=== PATIENT | male | born 1955 | race Caucasian/White ===

== ENCOUNTER 2020-04-06 01:44 | Outpatient (CLI) | payer MEDICARE, SELFPAY ==
[2020-04-06 20:40] LABS: SARS-CoV-2 RNA PCR Negative
== END 2020-04-06 01:45 | disposition home or self-care (01) ==
LOC: ANHCOVIDDT 01:45
PROVIDERS: PCP Internal Medicine; Visit Provider Orthopaedic Surgery
DX: Z01.812 Encounter for preprocedural laboratory examination (principal); Z20.828 Contact with and (suspected) exposure to other viral communicable diseases
CPT/HCPCS: 87635; C9803; U0003

== ENCOUNTER 2020-04-09 00:31 | Day surgery (SDC) | payer MEDICARE, SELFPAY ==
[2020-04-02 15:20] VITALS: BMI 36.3
--- NOTE | 2020-04-08 10:13 | WPDANESEPPF ---
Anes - Initial Pre Proc Eval Procedure: Operation Date: 04/09/20 08:30 Proposed Procedures p Right Foot Triple Arthrodesis, Achilles Lengthening, - Harley Baldwin MD s Iliac Crest Aspiration - Harley Baldwin MD Date/Time: 04/08/20 10:13 Surgeon: Harley Baldwin MD Pre Op Diagnosis: right foot arthritis, right foot deformity Patient Data Age: 64 Gender: M Height: 1.91 m Weight: 131.8 kg Allergies Allergy/AdvReac Type Severity Reaction Status Date / Time benzoin Allergy Unknown blisters Verified 04/02/20 15:12 gum mastic Allergy Unknown blisters Verified 04/02/20 15:12 adhesive tape AdvReac Unknown blisters Verified 04/02/20 15:12 Home Medications Medication Instructions Recorded Confirmed Type amlodipine 10 mg tablet 10 mg PO DAILY 02/26/20 04/02/20 History apixaban 5 mg tablet 5 mg PO BID 02/26/20 04/02/20 History gabapentin 300 mg capsule 300 mg PO BID 02/26/20 04/02/20 History lisinopril 40 mg tablet 40 mg PO DAILY 02/26/20 04/02/20 History primidone 50 mg tablet 125 mg PO BID 02/26/20 04/02/20 History Patient hx anesthesia problems: none Family hx anesthesia problems: none PMFSH Past Medical History Medical History (Updated 04/09/20 @ 07:37 by Jose Daniel Saleh MD) Abnormality of heart beat Achilles tendon contracture, right Afib Arthritis Arthritis of foot, degenerative CHF (congestive heart failure) diastolic Chronic narcotic use Constipation Dizziness History of pulmonary embolism Hypertension Idiopathic neuropathy Obesity Pes planovalgus Sleep apnea Sleep disorder Vision changes Weight gain Surgical History Surgical History History of foot surgery bilateral heal spur removal Social History Social History Smoking status: Former smoker Tobacco type: cigarettes Smoking end date: 05/29/84 Additional smoking assessment comments: STATES 1-2PK/DAY/10YRS - QUIT AGE 26? Alcohol intake: former Substance use: never Living arrangements: with family Spiritual care concerns: No Anes - Eval Final PreProcedure Day of Procedure 11/11/20 10:13 Patient weight: obese Heart: regular rate and rhythm Lungs: clear to auscultation and normal air movement Airway: Mallampati scale class II Neurological: alert and oriented Last oral intake: >/= 8 hours ASA classification: IV Emergent: no Anesthetic plan: proceed Anesthesia type and monitoring: general LMA and ETT Informed Consent: The patient's anesthetic plan and its attendant risks and benefits were discussed with the patient/family/POA. Questions were solicited and answers provided to the satisfaction of the patient/family/POA.
--- NOTE | 2020-04-08 15:37 | PM.IMHP ---
H&P: HPI History of Present Illness Date/Time: 04/08/20 15:37 Chief complaint: right foot arthritis, right foot deformity Narrative: Rishi Jordan is a 64 year old male With idiopathic peripheral neuropathy and severe right flatfoot deformity with arthritis. Problems with weight-bearing and daily activity. He has failed treatment with custom bracing, physical therapy, medication and activity modifications. Presents now for operative treatment. Review of Systems Constitutional: Constitutional: Denies fever(s) Eyes: Eyes: Denies blurry vision ENT: Reports Normal hearing present Cardiovascular: Cardiovascular: Denies chest pain and Denies dyspnea Respiratory: Respiratory: Denies dyspnea and Denies wheezing Gastrointestinal: Gastrointestinal: Denies abdominal pain Genitourinary: Genitourinary: Denies urinary urgency Musculoskeletal: Musculoskeletal: Reports as per HPI and Reports numbness ( Bilateral feet) Integumentary/Breasts: Skin/Breast: Denies changing lesions and Denies sores Neurologic: Reports Normal hearing present, Denies behavioral changes, Denies confusion, Reports numbness ( peripheral neuropathy) and Denies convulsions Psychiatric: Psychiatric: Denies behavioral changes, Denies confusion and Denies hallucinations Endocrine: Endocrine: Denies heat intolerance Hematologic/Lymphatic: Hematologic/Lymphatic: Denies easy bleeding Allergic/Immunologic: Allergic/Immunologic: Denies wheezing PMFSH Past Medical History Medical History Abnormality of heart beat Afib Arthritis Arthritis of foot, degenerative Constipation Dizziness History of pulmonary embolism Hypertension Idiopathic neuropathy Pes planovalgus Sleep apnea Sleep disorder Vision changes Weight gain Surgical History Surgical History History of foot surgery bilateral heal spur removal Social History Social History Smoking status: Former smoker Tobacco type: cigarettes Smoking end date: 05/29/84 Additional smoking assessment comments: STATES 1-2PK/DAY/10YRS - QUIT AGE 26? Alcohol intake: former Substance use: never Spiritual care concerns: No Meds Home Medications and Allergies Home Medications Medication Instructions Recorded Confirmed Type amlodipine 10 mg tablet 10 mg PO DAILY 02/26/20 04/02/20 History apixaban 5 mg tablet 5 mg PO BID 09/30/20 11/05/20 History gabapentin 300 mg capsule 300 mg PO BID 02/26/20 04/02/20 History lisinopril 40 mg tablet 40 mg PO DAILY 02/26/20 04/02/20 History primidone 50 mg tablet 125 mg PO BID 02/26/20 04/02/20 History Allergies Allergy/AdvReac Type Severity Reaction Status Date / Time benzoin Allergy Unknown blisters Verified 04/02/20 15:12 gum mastic Allergy Unknown blisters Verified 04/02/20 15:12 adhesive tape AdvReac Unknown blisters Verified 04/02/20 15:12 Exam Const: General: healthy appearing; No in distress or confusion Orientation/consciousness: oriented to person, oriented to place, oriented to time and No confusion HENMT: Head: normal to inspection, normocephalic and atraumatic Eyes: Conjunctivae: conjunctivae normal Sclera: sclerae normal Neck: Neck: supple and nontender Resp: Effort & Inspection: normal respiratory effort and no audible wheezes Cardio: Rate: regular rate Rhythm: regular rhythm Skin: General skin exam: no rashes or lesions noted Neuro: General: oriented to person, oriented to place, oriented to time and No confusion Extrem: Right upper extremity: normal to inspection Left upper extremity: normal to inspection Right lower extremity: normal capillary refill, ankle Details: tenderness Location: of the medial malleolus, swelling Details: medially and abnormal ROM Details: pain with active ROM Details: with inversion and with range as follows ( ankle dorsifle
[2020-04-09] VITALS (8 sets, daily range): BP systolic 92–159; BP diastolic 55–88; PULSE 65–77; RESP 8–20; TEMP 36.4; O2SAT 91–100
--- NOTE | ~2020-04-09 | XR_ITS ---
EXAMINATION: XR surgery orthopedic DATE: 04/09/2020 11:34 INDICATION: Right foot arthrodesis TECHNIQUE: 4 fluoroscopic images of the right foot and ankle were obtained during procedure performed by Dr. Baldwin. Radiologist was not present for the imaging or procedure. The amount of fluoroscopy time used during this procedure was 0.8 minutes. COMPARISON: None. FINDINGS: Postoperative changes of a right hindfoot arthrodesis with cannulated screws spanning the subtalar, t alonavicular and calcaneocuboid joints. Additional lateral sided staple spanning the calcaneocuboid j oint and wire plate and screws spanning the talonavicular joint. Finally there is additional cannulat ed screw extending medially across the talus from the lateral process. Bone alignment appears near-an atomic. No fractures. Expected intra-articular and soft tissue gas at the operative bed. IMPRESSION: 1. Fluoroscopy utilized for a right hindfoot arthrodesis as detailed above. See procedure note for fu rther detail. Reviewed, dictated and finalized at location A. [facility] IMPRESSION: 1. Fluoroscopy utilized for a right hindfoot arthrodesis as detailed above. See procedure note for further detail.
--- NOTE | 2020-04-09 07:21 | WPDHPUPDATE1 ---
History and Physical Update Update Date/Time: 04/09/20 07:21 History and Physical has been reviewed, including an updated exam of the patient. There are NO changes in the patient's condition. Covid test negative. Risks, benefits, and alternatives have been discussed and questions answered. Patient agrees to proceed with procedure.
[2020-04-09] MEDS: ACETAMINOPHEN 500 MG TABLET 1000 MG PO (07:35)
[2020-04-09] MEDS: LACTATED RINGERS 1,000 ML 30 ML IV CONT ×2 (07:47→12:00)
[2020-04-09] MEDS: KETOROLAC 15 MG/ML VIAL (*BKC) IV PUSH (07:48)
[2020-04-09] MEDS: ceFAZolin 3 GM/D5W 100 ML 100 ML IVPB (08:57)
[2020-04-09] MEDS: BUPIVACAINE HCL 0.5% PF 30 ML VIAL INFILTRATE (09:41)
--- NOTE | 2020-04-09 12:10 | PM.PROC ---
Procedure Note - Detailed Date of procedure: 04/09/20 Pre-op diagnosis: right foot arthritis, right foot deformity Post-op diagnosis: same Procedure performed: Right foot triple arthrodesis Description of procedure: Description of procedure: Indications: Patient is a 64-year-old man with inflammatory arthritis right foot and ankle swelling, pain and deformity with flatfoot. he has failed conservative treatment with custom bracing and inserts. He presents now for operative treatment. What was done: Patient identified in the preoperative holding. Informed consent given. Operative extremity marked. Patient received intravenous antibiotics. Patient brought to the operating room where underwent general anesthetic by anesthesia team. Positioned supine on operating room table. Time-out performed confirming the patient, site of the surgery and the plan. A bump placed under the right hip. Right lower extremity then prepped draped usual sterile surgical fashion using a ChloraPrep skin solution. Foot and ankle exsanguinated and a thigh tourniquet inflated to 250 mmHg. Oblique incision made from the tip of the fibula to the base of the 4th metatarsal with a 15 blade knife. Hemostasis controlled electrocautery. Capsulotomy was performed over the sinus tarsi and the calcaneocuboid joint with a 15 blade knife. Joints were then prepared using osteotomes, curettes and rongeur to remove the cartilage and subchondral bone surface as well as feather the arthrodesis site. The subtalar joint was then reduced and pinned and checked with image intensification. Fixation was achieved with 7.0 mm cannulated screws placed percutaneously from the heel. Good reduction and compression were noted. Platelet rich plasma which had been removed from the patient's venous blood and prepared on the back table with centrifuge was then mixed with the demineralized bone matrix and packed into the subtalar joint prior to fixation. Calcaneocuboid joint was approached in a similar fashion. The graft with demineralized bone matrix was placed into the arthrodesis site. This was reduced and provisionally pinned and checked with image intensification. Fixation achieved with a Nitinol staple and 5.0 mm cannulated lag screw. split was noted in the lateral process of the talus. This was fixed with a 5.0 mm cannulated lag screw without difficulty. Wound thoroughly irrigated antibiotic solution fascia repaired with 0 Vicryl interrupted suture. Subcutaneous tissue repaired with 2 Vicryl suture subcutaneous tissue repaired with 3 0 Monocryl interrupted suture and skin repaired with clotilde. Stab incisions closed with 3 Monocryl and clotilde. Oblique incision made from the medial malleolus to the navicular then with a 15 blade knife. Hemostasis controlled with electrocautery. Fascia incised in line with skin incision. Talonavicular joint capsule was then incised in line with skin incision and elevated dorsally and plantarward. The joint was then prepared using osteotomes, curette and rongeur. The articular surface was removed. The bone surface was feathered. The remaining demineralized bone matrix graft was then packed into the arthrodesis site. This was reduced and fixed with a 4 hole compression plate and 5.0 mm cannulated lag screw. Image intensification confirmed final alignment and placement of all the hardware. Wound was thoroughly irrigated and closed with 0 Vicryl interrupted suture for the fascia, 00 Vicryl interrupted suture for the subcutaneous tissue and 3 0 Monocryl interrupted suture for the subcutaneous subcuticular layer. [place] were used for the skin. Tourniquet was released prior to closure and any bleeding points were coagulated. Sterile dressing applied. Well-padded short-leg cast applied. The patient was then woken from anesthesia, extubated and taken to the recovery room in stable condition. All sponge, needle, instrument counts were correct at the end of the case. Implants: Ar[employer]
--- NOTE | 2020-04-09 12:13 | P.OP_ITS ---
Procedure Note - Detailed Date of procedure: 04/09/20 Pre-op diagnosis: right foot arthritis, right foot deformity Procedure performed: Description of procedure: Indications: Patient is a 64-year-old man with inflammatory arthritis right foot and ankle swelling, pain and deformity with flatfoot. he has failed conservative treatment with custom bracing and inserts. He presents now for operative treatment. What was done: Patient identified in the preoperative holding. Informed consent given. Operative extremity marked. Patient received intravenous antibiotics. Patient brought to the operating room where underwent general anesthetic by anesthesia team. Positioned supine on operating room table. Time-out performed confirming the patient, site of the surgery and the plan. A bump placed under the right hip. Right lower extremity then prepped draped usual sterile surgical fashion using a ChloraPrep skin solution. Foot and ankle exsanguinated and a thigh tourniquet inflated to 250 mmHg. Oblique incision made from the tip of the fibula to the base of the 4th metatarsal with a 15 blade knife. Hemostasis controlled electrocautery. Capsulotomy was performed over the sinus tarsi and the calcaneocuboid joint with a 15 blade knife. Joints were then prepared using osteotomes, curettes and rongeur to remove the cartilage and subchondral bone surface as well as feather the arthrodesis site. The subtalar joint was then reduced and pinned and checked with image intensification. Fixation was achieved with 7.0 mm cannulated screws placed percutaneously from the heel. Good reduction and compression were noted. Platelet rich plasma which had been removed from the patient's venous blood and prepared on the back table with centrifuge was then mixed with the demineralized bone matrix and packed into the subtalar joint prior to fixation. Calcaneocuboid joint was approached in a similar fashion. The graft with demineralized bone matrix was placed into the arthrodesis site. This was reduced and provisionally pinned and checked with image intensification. Fixation achieved with a Nitinol staple and 5.0 mm cannulated lag screw. split was noted in the lateral process of the talus. This was fixed with a 5.0 mm cannulated lag screw without difficulty. Wound thoroughly irrigated antibiotic solution fascia repaired with 0 Vicryl interrupted suture. Subcutaneous tissue repaired with 2 Vicryl suture subcutaneous tissue repaired with 3 0 Monocryl interrupted suture and skin repaired with clotilde. Stab incisions closed with 3 Monocryl and clotilde. Oblique incision made from the medial malleolus to the navicular then with a 15 blade knife. Hemostasis controlled with electrocautery. Fascia incised in line with skin incision. Talonavicular joint capsule was then incised in line with skin incision and elevated dorsally and plantarward. The joint was then prepared using os teotomes, curette and rongeur. The articular surface was removed. The bone surface was feathered. The remaining demineralized bone matrix graft was then packed into the arthrodesis site. This was reduced and fixed with a 4 hole compression plate and 5.0 mm cannulated lag screw. Image intensification confirmed final alignment and placement of all the hardware. Wound was thoroughly irrigated and closed with 0 Vicryl interrupted suture for the fascia, 00 Vicryl interrupted suture for the subcutaneous tissue and 3 0 Monocryl interrupted suture for the subcutaneous subcuticular layer. [place] were used for the skin. Tourniquet was released prior to closure and any bleeding points were coagulated. Sterile dressing applied. Well-padded short-leg cast applied. The patient was then woken from anesthesia, extubated and taken to the recovery room in stable
[2020-04-09] MEDS: fentaNYL CITRATE INJ (*CRX) 100 MCG/2 ML VIAL 25 MCG IV PUSH ×3 (12:38→12:43)
[2020-04-09] MEDS: oxyCODONE HCL (*CRX) 5 MG TAB IR PO (13:32)
== END 2020-04-09 14:20 | disposition home or self-care (01) ==
PROVIDERS: PCP Internal Medicine; Visit Provider Orthopaedic Surgery
PROC: (CPT 28715; principal; 2020-04-09 08:30)
DX: M19.071 Primary osteoarthritis, right ankle and foot (principal); M21.6X1 Other acquired deformities of right foot; I48.91 Unspecified atrial fibrillation; I11.0 Hypertensive heart disease with heart failure; I50.9 Heart failure, unspecified; G47.30 Sleep apnea, unspecified; G62.9 Polyneuropathy, unspecified; E66.9 Obesity, unspecified; Z68.36 Body mass index [BMI] 36.0-36.9, adult; Z79.01 Long term (current) use of anticoagulants; Z87.891 Personal history of nicotine dependence; Z86.711 Personal history of pulmonary embolism
CPT/HCPCS: 28715; A9270; C1713; J0690; J1100; J1885; J2250; J2405; J2704; J3010; J7120

== ENCOUNTER 2021-02-23 09:04 | Outpatient (CLI) | payer MEDICARE, SELFPAY ==
--- NOTE | ~2021-02-23 | US_ITS ---
EXAMINATION: US venous doppler [facility] DATE: 02/23/2021 10:22 INDICATION: Right lower limb swelling and skin changes. TECHNIQUE: Grayscale ultrasound images without and with compression and Doppler ultrasound images of the bilateral lower extremity veins were obtained. COMPARISON: None. FINDINGS: The visualized portions of right common femoral vein, profunda (deep) femoral vein, femoral vein, pop liteal vein, posterior tibial veins, peroneal veins, gastrocnemius vein and greater saphenous vein ou tflow are patent. Right Standing Venous Mapping: reflux seconds duration; vein size. Greater saphenous origin: 0 seconds; 7.5 mm. Greater saphenous mid thigh:------ 0 seconds; 3.6 mm. Greater saphenous below knee:--- 1.6 seconds; 2.9 mm. Lesser saphenous proximally:------ 0 seconds; 6.4 mm. Lesser saphenous distally: 0 seconds; 5.0 mm. The visualized portions of left common femoral vein, profunda femoral vein, femoral vein, popliteal v ein, posterior tibial veins, peroneal veins, gastrocnemius vein and greater saphenous vein outflow ar e patent. Left Standing Venous Mapping: reflux seconds duration; vein size. Greater saphenous origin: 0 seconds; 8.9 mm. Greater saphenous mid thigh:------ 0 seconds; 3.9 mm. Greater saphenous below knee:--- 0 seconds; 2.6 mm. Lesser saphenous proximally:------ 0 seconds; 7.6 mm. Lesser saphenous distally: 0 seconds; 5.1 mm. IMPRESSION: 1. No deep venous thrombosis in either lower limb. 2. No significant reflux in the bilateral greater and lesser saphenous veins. Reviewed, dictated and finalized at location A.
== END 2021-02-23 09:05 | disposition home or self-care (01) ==
LOC: ANHIMG 09:09
PROVIDERS: PCP Internal Medicine; Visit Provider Orthopaedic Surgery
DX: R60.0 Localized edema (principal)
CPT/HCPCS: 93970

== ENCOUNTER → 2021-03-22 03:19 | Outpatient (CLI) | payer MEDICARE, SELFPAY ==
[2021-03-22 19:59] LABS: SARS-CoV-2 RNA PCR Negative
== END ==
PROVIDERS: PCP Internal Medicine; Visit Provider Orthopaedic Surgery
DX: Z20.822 Contact with and (suspected) exposure to COVID-19 (principal)
CPT/HCPCS: C9803; U0003; U0005

== ENCOUNTER 2021-03-26 15:04 | Inpatient (IN) | payer MEDICARE, SELFPAY ==
[2021-03-22 11:47] VITALS: BMI 34.9
--- NOTE | 2021-03-23 15:54 | PM.IMHP ---
H&P: HPI History of Present Illness Date/Time: 03/23/21 15:54 Chief Complaint: Left foot pain Narrative: Chronic Lt foot pain. Pt has been having similar symptoms as his Rt foot. Pt states that the pain is located in the ankle and dorsal foot. Pt has been taking tylenol and doing RICE with minimal relief. Location: bilateral foot Duration: Right foot: 9mo PO Left foot: years Characteristics of symptom or complaint: Left foot: pain, swelling, Aggravating or associated factors: prolonged activity Relieving factors: RICE, tylenol Review of Systems Constitutional: Constitutional: Denies fever(s) Eyes: Eyes: Denies blurry vision ENT: Reports Normal hearing present Cardiovascular: Cardiovascular: Denies chest pain and Denies dyspnea Respiratory: Respiratory: Denies dyspnea and Denies wheezing Gastrointestinal: Gastrointestinal: Denies abdominal pain Genitourinary: Genitourinary: Denies urinary urgency Musculoskeletal: Musculoskeletal: Reports as per HPI and Reports numbness ( Bilateral feet) Integumentary/Breasts: Skin/Breast: Denies changing lesions and Denies sores Neurologic: Reports Normal hearing present, Denies behavioral changes, Denies confusion, Reports numbness ( peripheral neuropathy) and Denies convulsions Psychiatric: Psychiatric: Denies behavioral changes, Denies confusion and Denies hallucinations Endocrine: Endocrine: Denies heat intolerance Hematologic/Lymphatic: Hematologic/Lymphatic: Denies easy bleeding Allergic/Immunologic: Allergic/Immunologic: Denies wheezing PMFSH Past Medical History Medical History (Updated 03/23/21 @ 15:56 by Harley Baldwin MD) Abnormality of heart beat Achilles tendon contracture, left Achilles tendon contracture, right Afib Arthritis Arthritis of foot, degenerative CHF (congestive heart failure) diastolic Chronic narcotic use Constipation Degenerative arthritis of right knee Dizziness Encounter for Postoperative Care History of pulmonary embolism Hypertension Idiopathic neuropathy Obesity Pes planovalgus Sleep apnea Sleep disorder Vision changes Weight gain Surgical History Surgical History History of foot surgery bilateral heal spur removal Social History Social History Smoking packs per day: 1.5 Smoking cigarettes per day: 30.0 Years smoked: 10 Smoking pack-years: 15.00 Smoking status: Former smoker Tobacco type: cigarettes Smoking end date: 05/29/84 Additional smoking assessment comments: STATES 1-2PK/DAY/10YRS - QUIT AGE 26? Alcohol intake: former Substance use: never Spiritual care concerns: No Meds Home Medications and Allergies Home Medications Medication Instructions Recorded Confirmed Type amlodipine 10 mg tablet 10 mg PO DAILY 02/26/20 03/22/21 History apixaban 5 mg tablet 5 mg PO BID 02/26/20 03/22/21 History gabapentin 300 mg capsule 600 mg PO BID 02/26/20 03/22/21 History lisinopril 40 mg tablet 40 mg PO DAILY 02/26/20 03/22/21 History hydrocodone-acetaminophen [[place]] 1 tablet PO Q4H PRN #30 tablet 04/09/20 03/22/21 Rx ondansetron HCl [Zofran] 4 mg PO Q8H PRN #10 tablet 04/09/20 03/22/21 Rx fluocinonide 0.05 % topical cream 1 applic TOPICAL PRN PRN 10/07/20 03/22/21 History hydroxychloroquine 200 mg PO BID 03/22/21 03/22/21 History metoprolol succinate 25 mg PO QPM 03/22/21 03/22/21 History Allergies Allergy/AdvReac Type Severity Reaction Status Date / Time benzoin Allergy Unknown blisters Verified 03/22/21 10:57 gum mastic Allergy Unknown blisters Verified 03/22/21 10:57 adhesive tape AdvReac Unknown blisters Verified 03/22/21 10:57 Exam Const: General: healthy appearing; No in distress or confusion Orientation/consciousness: oriented to person, oriented to place, oriented to time and No confusion HENMT: Head: normal to inspection, normocephalic and atraumatic Eyes: Conjuncti
--- NOTE | 2021-03-24 10:56 | WPDANESEPPF ---
Anes - Initial Pre Proc Eval Procedure: Operation Date: 03/25/21 07:30 Proposed Procedures p Left Foot Triple Arthrodesis - Harley Baldwin MD s Peroneal Tendonesis Posterior Tendon Reconstruction With Tendon Transfer, Spring Ligament Transfer - Harley Baldwin MD Date/Time: 03/24/21 10:56 Surgeon: Harley Baldwin MD Pre Op Diagnosis: Lt Ft Arthritis, Flat Foot, Posterior Tibial Dysfu Patient Data Age: 65 Gender: M Height: 1.91 m Weight: 127.05 kg Allergies Allergy/AdvReac Type Severity Reaction Status Date / Time benzoin Allergy Unknown blisters Verified 03/25/21 06:43 gum mastic Allergy Unknown blisters Verified 03/25/21 06:43 adhesive tape AdvReac Unknown blisters Verified 03/25/21 06:43 Home Medications Medication Instructions Recorded Confirmed Type amlodipine 10 mg tablet 10 mg PO DAILY 02/26/20 03/25/21 History apixaban 5 mg tablet 5 mg PO BID 02/26/20 03/22/21 History gabapentin 300 mg capsule 600 mg PO BID 02/26/20 03/25/21 History lisinopril 40 mg tablet 40 mg PO DAILY 02/26/20 03/22/21 History hydrocodone-acetaminophen [[place]] 1 tablet PO Q4H PRN #30 tablet 04/09/20 03/22/21 Rx ondansetron HCl [Zofran] 4 mg PO Q8H PRN #10 tablet 04/09/20 03/22/21 Rx fluocinonide 0.05 % topical cream 1 applic TOPICAL PRN PRN 10/07/20 03/22/21 History hydroxychloroquine 200 mg PO BID 03/22/21 03/22/21 History metoprolol succinate 25 mg PO QPM 03/22/21 03/22/21 History sulfamethoxazole-trimethoprim 1 tablet PO BID 03/25/21 03/25/21 History Patient hx anesthesia problems: none Family hx anesthesia problems: none Results Review: All pre-operative results and documents have been reviewed as part of the pre-operative evaluation. [facility] Past Medical History Medical History (Updated 03/23/21 @ 15:56 by Harley Baldwin MD) Abnormality of heart beat Achilles tendon contracture, left Achilles tendon contracture, right Afib Arthritis Arthritis of foot, degenerative CHF (congestive heart failure) diastolic Chronic narcotic use Constipation Degenerative arthritis of right knee Dizziness Encounter for Postoperative Care History of pulmonary embolism Hypertension Idiopathic neuropathy Obesity Pes planovalgus Sleep apnea Sleep disorder Vision changes Weight gain Surgical History Surgical History History of foot surgery bilateral heal spur removal Social History Social History Smoking packs per day: 1.5 Smoking cigarettes per day: 30.0 Years smoked: 10 Smoking pack-years: 15.00 Smoking status: Former smoker Tobacco type: cigarettes Smoking end date: 05/29/84 Additional smoking assessment comments: STATES 1-2PK/DAY/10YRS - QUIT AGE 26? Alcohol intake: former Substance use: never Living arrangements: with family Spiritual care concerns: No Anes - Eval Final PreProcedure Day of Procedure 03/24/21 10:56 Patient weight: obese Heart: regular rate and rhythm Lungs: clear to auscultation and normal air movement Airway: Mallampati scale class II Neurological: alert and oriented Last oral intake: >/= 8 hours ASA classification: IV Emergent: no Anesthetic plan: proceed Anesthesia type and monitoring: general LMA Results Review: All pre-operative results and documents have been reviewed as part of the pre-operative evaluation. Informed Consent: The patient's anesthetic plan and its attendant risks and benefits were discussed with the patient/family/POA. Questions were solicited and answers provided to the satisfaction of the patient/family/POA.
[2021-03-25] VITALS (15 sets, daily range): BP systolic 82–130; BP diastolic 50–75; PULSE 43–94; RESP 10–18; TEMP 36.1–37.3; O2SAT 93–98; BMI 35.5
--- NOTE | 2021-03-25 06:52 | WPDHPUPDATE1 ---
History and Physical Update Update Date/Time: 03/25/21 06:52 History and Physical has been reviewed, including an updated exam of the patient. There are NO changes in the patient's condition. Risks, benefits, and alternatives have been discussed and questions answered. Patient agrees to proceed with procedure.
--- NOTE | 2021-03-25 06:56 | WPDANESPNB ---
Anes - Peripheral Nerve Block Date/Time: 03/25/21 06:56 I have discussed with the patient/family/POA the placement of a peripheral nerve block for post-operative pain management, including associated risks, benefits, complications, and side effects. Alternative methods of post-operative analgesia were detailed. Questions were solicited and answers provided to the satisfaction of the patient/family/POA. Time-Out: A pre-procedural Time-Out was completed immediately before starting the procedure and confirmed: Patient Identification, Site, Procedure, Patient Position and the Availability of Requisite Equipment. Clinical Indications: Acute post-operative pain management requested by the operative surgeon. Nerve Block Insertion Note Anes-nerve block: posterior fossa sciatic (20cc) left and adductor canal (10cc) left Patient position: supine Skin prep: chlorhexidine Needle: 22 gauge, stimulating, insulated echogenic needle. Needle length: 80 mm Technique: ultrasound (in plane) Injectate: bupivacaine 0.25% with epi 5 mcg/ml (30cc) Observations: tolerated well Complications: none Procedure start time:: 750 Procedure end time:: 755
[2021-03-25] MEDS: ACETAMINOPHEN 500 MG TABLET 1000 MG PO (07:34)
[2021-03-25] MEDS: LACTATED RINGERS 1,000 ML 30 ML IV CONT (07:35)
[2021-03-25] MEDS: KETOROLAC 15 MG/ML VIAL (*BKC) IV PUSH (07:39)
[2021-03-25] MEDS: ceFAZolin 3 GM/D5W 100 ML 100 ML IVPB (08:17)
--- NOTE | 2021-03-25 12:33 | W.PM.PROC2 ---
Procedure Note - Detailed Date of Procedure 03/25/21 Pre-op Diagnosis Lt Ft Arthritis, Flat Foot, Posterior Tibial Dysfu Post-op Diagnosis same Procedure Performed Left foot triple arthrodesis, posterior tibial tendon reconstruction, peroneal tenodesis, deltoid medial ankle ligament reconstruction. Surgeon Harley Baldwin MD Endodontic Assistant radiology assistant Anesthesia general Indications 65-year-old gentleman with severe pes planovalgus deformity left foot. Imbalance of the soft tissue control of the foot. Patient has failed bracing and conservative treatment. Presents now for operative treatment. Description of Procedure What was done: Patient identified in the preoperative holding. Informed consent given. Operative extremity marked. Patient received intravenous antibiotics. Patient brought to the operating room where underwent general anesthetic by anesthesia team. Positioned supine on operating room table. Time-out performed confirming the patient, site of the surgery and the plan. A bump placed under the left hip. Left lower extremity then prepped draped usual sterile surgical fashion using a ChloraPrep skin solution. Foot and ankle exsanguinated and a thigh tourniquet inflated to 250 mmHg. Oblique incision made from the tip of the fibula to the base of the 4th metatarsal with a 15 blade knife. Hemostasis controlled electrocautery. Capsulotomy was performed over the sinus tarsi and the calcaneocuboid joint with a 15 blade knife. Joints were then prepared using osteotomes, curettes and rongeur to remove the cartilage and subchondral bone surface as well as feather the arthrodesis site. The subtalar joint was then reduced and pinned and checked with image intensification. Fixation was achieved with 6.5 mm cannulated screws placed percutaneously from the heel. Good reduction and compression were noted. Platelet rich plasma which had been removed from the patient's venous blood and prepared on the back table with centrifuge was then mixed with the demineralized bone matrix and packed into the subtalar joint prior to fixation. Calcaneocuboid joint was approached in a similar fashion. The graft with demineralized bone matrix was placed into the arthrodesis site. This was reduced and provisionally pinned and checked with image intensification. Fixation achieved with a Nitinol staple- 18mm. Wound thoroughly irrigated with antibiotic solution. fascia repaired with 0 Vicryl interrupted suture. Subcutaneous tissue repaired with 00 Vicryl suture subcutaneous tissue repaired with 3 0 Monocryl interrupted suture and skin repaired with clotilde. Stab incisions closed with 3 0 Monocryl and clotilde. Oblique incision made from the medial malleolus to the naviculum with a 15 blade knife. Hemostasis controlled electrocautery. Fascia incised in line with skin incision. Talonavicular joint capsule was then incised in line with skin incision and elevated dorsally and plantarward. The joint was then prepared using osteotomes, curette and rongeur. The articular surface was removed. The bone surface was feathered. The remaining demineralized bone matrix graft was then packed into the arthrodesis site. This was reduced and fixed with a 4 hole compression plate. Image intensification confirmed final alignment and placement of all the hardware. Secondary fixation achieved with 4.5 mm partially-threaded cannulated screw from distal to proximal. Wound was thoroughly irrigated and closed with 0 Vicryl interrupted suture for the fascia, 2 Vicryl interrupted suture for the subcutaneous tissue and 3 0 Monocryl interrupted suture for the subcutaneous subcuticular layer. Clotilde were used for the skin. Incision made with 15 blade knife posterior to the lateral malleolus. Hemostasis controlled electrocautery. Peroneal retinaculum opened and the peroneal tendons inspected. The brevis was noted to have a split tear. Tenodesis was then performed of the brevis to the longus wi
--- NOTE | 2021-03-25 13:25 | SUR.PHASEI ---
[id number] sbar faxed floor notified
[2021-03-25] MEDS: KCL 20 MEQ/D5/0.45% SOD CHL 1,000 ML 80 ML IV CONT (14:41)
[2021-03-25] MEDS: HYDROcodone/acetaminophen (*CRX) 7.5-325 MG TABLET 1 TAB PO ×2 (16:43→20:42)
[2021-03-25] MEDS: DOCUSATE SODIUM 100 MG CAPSULE PO (16:45)
[2021-03-25] MEDS: GABAPENTIN 300 MG CAPSULE 600 MG PO (16:46)
[2021-03-25] MEDS: HYDROXYCHLOROQUINE SULFATE 200 MG TABLET PO (16:46)
[2021-03-25] MEDS: APIXABAN 5 MG TABLET PO (16:46)
[2021-03-25] MEDS: METOPROLOL SUCCINATE EXT REL 25 MG TABCR PO (16:47)
[2021-03-25] MEDS: diazePAM (*CRX) 5 MG TABLET PO (20:41)
--- NOTE | ~2021-03-26 | XR_ITS ---
EXAMINATION: XR surgery orthopedic EXAM DATE: 03/25/2021 11:36 INDICATION: Left foot arthrodesis. TECHNIQUE: Fluoroscopy used during left foot arthrodesis performed by Dr. Harley Baldwin MD. Rad iologist was not present for the imaging or procedure. Total fluoroscopic time of 43 seconds. The D AP for this procedure was 0.04 mGym2. A total of 5 images sent to PACS from the exam. FINDINGS: Images demonstrate hardware bridging the subtalar joints, talonavicular joint, calcaneocub oid joint. Correlate with procedure note. IMPRESSION: Fluoroscopy used during left foot arthrodesis. Reviewed, dictated and finalized at location B.
[2021-03-26] MEDS: HYDROcodone/acetaminophen (*CRX) 7.5-325 MG TABLET 1 TAB PO ×3 (00:48→14:37)
[2021-03-26 04:06] VITALS: BP 112/61; PULSE 67; RESP 16; TEMP 36.8; O2SAT 95
[2021-03-26 06:21] LABS: Basophils Percent Auto 0.1 % (0.2-1.2); Eosinophils Percent Auto 0.1 % (0-4.4); Hematocrit 36.4 % (42.0-52.0); Hemoglobin 12.2 g/dL (14.0-18.0); Immature Granulocyte Absolute 0.09 K/mm3 (0.00-0.031); Immature Granulocyte Percent A 0.5 % (0-0.5); Lymphocytes Absolute Auto 1.58 K/mm3 (0.9-3.2); Lymphocytes Percent Auto 9.6 % (18.3-44.2); Mean Corpuscular HGB Conc 33.5 g/dl (32-36); Mean Corpuscular Hemoglobin 29.8 pg (26-34); Mean Platelet Volume 9.1 fl (7.4-10.4); Monocytes Absolute Auto 0.9 K/mm3 (0.1-0.6); Monocytes Percent Auto 5.3 % (2.6-8.5); Neutrophils Percent Auto 84.4 % (45.5-73.1); Platelet Count Result 245 k/mm3 (150-375); Red Blood Count 4.09 M/mm3 (4.6-6.20); Red Cell Distribution Width 12.6 % (11.5-14.5); White Blood Count 16.5 K/mm3 (4.5-10.0)
[2021-03-26 06:38] LABS: Anion Gap 9 mmol/L (8-16); Blood Urea Nitrogen 18 mg/dL (9-20); Carbon Dioxide 22 mmol/L (22-30); Chloride 105 mmol/L (98-107); Estimated CRCL calculation 78 ml/min; Estimated Glomerular Filt Rate > 60; Glucose 124 mg/dL (65-110); Potassium 4.6 mmol/L (3.4-5.0); Sodium 136 mmol/L (137-145)
--- NOTE | 2021-03-26 08:52 | PM.PNORT ---
Progress Note: A&P Assessment and Plan (1) Arthritis of foot, degenerative: Qualifiers: Laterality: left Osteoarthritis type: primary Qualified Code(s): M19.072 - Primary osteoarthritis, left ankle and foot Code(s): M19.079 - Primary osteoarthritis, unspecified ankle and foot Status: Acute Assessment and Plan: Postoperative day 1. Patient awake and alert. Tolerating diet. Pain well controlled. Splint changed due to sanguinous drainage overnight. Otherwise stable. Physical therapy today. Nonweightbearing left lower extremity. Discharge home when cleared. (2) Pes planovalgus: Code(s): Q66.6 - Other congenital valgus deformities of feet Status: Acute Subjective Subjective Date/Time Seen: 03/26/21 08:52 Post Op day: 1 Principal diagnosis: LT foot reconstruction Interval history: Awake and alert. Did ok overnight. Bloody drainage from splint noted. Reinforced with gauze and shakila wrap. Review of Systems Constitutional: Constitutional: Denies fever(s) Eyes: Eyes: Denies blurry vision ENT: Reports Normal hearing present Cardiovascular: Cardiovascular: Denies chest pain and Denies dyspnea Respiratory: Respiratory: Denies dyspnea and Denies wheezing Gastrointestinal: Gastrointestinal: Denies abdominal pain Genitourinary: Genitourinary: Denies urinary urgency Musculoskeletal: Musculoskeletal: Reports as per HPI and Reports numbness ( Bilateral feet) Integumentary/Breasts: Skin/Breast: Denies changing lesions and Denies sores Neurologic: Reports Normal hearing present, Denies behavioral changes, Denies confusion, Reports numbness ( peripheral neuropathy) and Denies convulsions Psychiatric: Psychiatric: Denies behavioral changes, Denies confusion and Denies hallucinations Endocrine: Endocrine: Denies heat intolerance Hematologic/Lymphatic: Hematologic/Lymphatic: Denies easy bleeding Allergic/Immunologic: Allergic/Immunologic: Denies wheezing Exam Const: General: healthy appearing; No in distress or confusion Orientation/consciousness: patient oriented x3 and No confusion HENMT: Head: normal to inspection, normocephalic and atraumatic Eyes: Conjunctivae: conjunctivae normal Sclera: sclerae normal Resp: Effort & Inspection: normal respiratory effort and no audible wheezes Neuro: General: patient oriented x3 and No confusion Extrem: Left lower extremity: foot Details: normal capillary refill, tenderness Location: of the lateral foot and of the medial foot, vascular exam Details: dorsalis pedis pulse present and normal capillary refill and motor-sensory exam light-touch abnormal in all toes ( neuropathy) Other: splint removed left foot. Sanguinous drainage on the dressing noted. No active bleeding or drainage. Incisions clean dry and intact. Foot and skin was cleansed with soap solution and dried. New sterile gauze dressing applied. New short-leg splint applied. Psych: Affect: normal affect Objective Data Vital Signs Vital Signs: Vital Signs - 24 hr 03/25/21 12:15 03/25/21 12:30 03/25/21 12:45 Temperature 99.2 F Pulse Rate 43 L 53 L 47 L Respiratory Rate 18 18 15 Blood Pressure 82/50 L 85/56 L 89/57 L Pulse Oximetry 94 98 98 03/25/21 13:00 03/25/21 13:15 03/25/21 13:30 Temperature Pulse Rate 57 L 57 L 62 Respiratory Rate 17 12 10 L Blood Pressure 104/59 L 99/66 L 97/53 L Pulse Oximetry 96 94 95 03/25/21 13:45 03/25/21 13:57 03/25/21 15:05 Temperature 97.4 F L Pulse Rate 70 65 80 Respiratory Rate 14 14 16 Blood Pressure 96/56 L 90/56 L 107/53 L Pulse Oximetry 93 93 96 03/25/21 15:51 03/25/21 16:47 03/25/21 20:46 Temperature 97.6 F 97.2 F L Pulse Rate 79 74 68 Respiratory Rate 16 17 Blood Pressure 108/62 130/75 Pulse Oximetry 95 97 03/25/21 22:10 03/25/21 23:58 03/26/21 04:06 Temperature 97 F L 98.3 F Pulse Rate 94 79 67 Respiratory Rate 18 14 16 Blood Pressure 118/72 112/61 Pulse Oximetry 96 97 95
[2021-03-26] MEDS: GABAPENTIN 300 MG CAPSULE 600 MG PO ×2 (09:25→18:25)
[2021-03-26] MEDS: HYDROXYCHLOROQUINE SULFATE 200 MG TABLET PO ×2 (09:26→18:26)
[2021-03-26] MEDS: amLODIPine BESYLATE 5 MG TABLET 10 MG PO (09:26)
[2021-03-26] MEDS: DOCUSATE SODIUM 100 MG CAPSULE PO ×2 (09:26→18:28)
[2021-03-26] MEDS: lisinopriL 20 MG TABLET 40 MG PO (09:28)
[2021-03-26] MEDS: APIXABAN 5 MG TABLET PO ×2 (09:28→18:26)
--- NOTE | 2021-03-26 09:47 | PM.DS ---
DS: Admitting Diagnosis Discharge Date March 26, 2021 Admitting Diagnosis left pes [place] valgus and degenerative arthritis. DS: Discharge Diagnosis Discharge Diagnosis (1) Arthritis of foot, degenerative: Qualifiers: Osteoarthritis type: primary Laterality: left Qualified Code(s): M19.072 - Primary osteoarthritis, left ankle and foot Code(s): M19.079 - Primary osteoarthritis, unspecified ankle and foot Status: Acute (2) Pes planovalgus: Code(s): Q66.6 - Other congenital valgus deformities of feet Status: Acute (3) Idiopathic neuropathy: Code(s): G60.9 - Hereditary and idiopathic neuropathy, unspecified Status: Acute DS: Summary Hospital Course Reason for hospitalization: Left foot reconstruction Hospital Course: patient taken to the operating room on March 25 for left foot reconstruction. Admitted postoperatively for medical control and pain control. Did well postoperatively. Cleared by Physical therapy for transfers with nonweightbearing. Tolerating regular diet. Pain well controlled. Sanguinous drainage through the splint noted overnight. Dressing changed in the morning with benign exam. Nu splint applied. Patient cleared for discharge home Status at Discharge Cognitive/behavioral status at discharge: Alert and oriented x3 Functional status at discharge: uses cane/walker Overall status at discharge: patient is not back to baseline Time Spent with Patient Time attestation: Total time spent providing and/or coordinating discharge services: Exam Const: General: healthy appearing; No in distress or confusion Orientation/consciousness: patient oriented x3 and No confusion HENMT: Head: normal to inspection, normocephalic and atraumatic Eyes: Conjunctivae: conjunctivae normal Sclera: sclerae normal Resp: Effort & Inspection: normal respiratory effort and no audible wheezes Neuro: General: patient oriented x3 and No confusion Extrem: Left lower extremity: foot Details: normal capillary refill, tenderness Location: of the lateral foot and of the medial foot, vascular exam Details: dorsalis pedis pulse present and normal capillary refill and motor-sensory exam light-touch abnormal in all toes ( neuropathy) Other: splint removed left foot. Sanguinous drainage on the dressing noted. No active bleeding or drainage. Incisions clean dry and intact. Foot and skin was cleansed with soap solution and dried. New sterile gauze dressing applied. New short-leg splint applied. Psych: Affect: normal affect DS: Data Data Completed and Pending Labs on day of discharge: Labs from last 24 hours 03/26/21 03/26/21 05:59 05:59 WBC 16.5 H RBC 4.09 L Hgb 12.2 L Hct 36.4 L MCV 89.0 MCH 29.8 MCHC 33.5 RDW 12.6 Plt Count 245 MPV 9.1 Immature Gran % (Auto) 0.5 Neut % (Auto) 84.4 H Lymph % (Auto) 9.6 L [place] % (Auto) 5.3 Eos % (Auto) 0.1 Baso % (Auto) 0.1 L Lymph # (Auto) 1.58 [place] # (Auto) 0.9 H Eos # (Auto) 0.0 Baso # (Auto) 0.0 Abs Immat Gran (auto) 0.09 H Absolute Neuts (auto) 14.0 H Absolute Nucleated RBC 0.0 Nucleated RBC % 0.0 Sodium 136 L Potassium 4.6 Chloride 105 Carbon Dioxide 22 Anion Gap 9 BUN 18 Creatinine 1.20 Estim Creat Clear Calc 78 Estimated GFR > 60 Glucose 124 H Calcium 9.0 Discharge Plan Discharge Patient Disposition: Home, Self-Care Discharge Instructions: PRADEEP LOZANO M.D. [facility] [address] [place] [address] POST OPERATIVE DISCHARGE INSTRUCTIONS FOOT/ANKLE SURGERY Elevate the involved extremity on pillows. For the first 48 hours, make sure that the foot is above the level of your heart Carefully observe the exposed toes for evidence of swelling or discoloration. If the dressing is uncomfortable or tight, call the Dr?s office. Keep the dressing clean and dry. Splin
[2021-03-26] MEDS: IBUPROFEN IV 800 MG/200 ML 800 MG/200 ML BAG 400 MG IVPB ×2 (10:58→22:39)
[2021-03-26 11:59] VITALS: BP 140/59; PULSE 69; RESP 16; TEMP 36.3; O2SAT 69
[2021-03-26 15:52] VITALS: BP 117/77; PULSE 75; RESP 16; TEMP 36.3; O2SAT 98
[2021-03-26] MEDS: MORPHINE SULFATE (*CRX) 4 MG/ML INJ 3 MG IV PUSH ×2 (16:05→20:20)
[2021-03-26 18:26] VITALS: PULSE 75
[2021-03-26] MEDS: METOPROLOL SUCCINATE EXT REL 25 MG TABCR PO (18:26)
[2021-03-26 19:53] VITALS: BP 105/68; PULSE 85; RESP 16; TEMP 36.6; O2SAT 95
[2021-03-26] MEDS: diazePAM (*CRX) 5 MG TABLET PO (20:22)
[2021-03-26 21:16] VITALS: PULSE 92; RESP 18; O2SAT 96
[2021-03-27] MEDS: HYDROcodone/acetaminophen (*CRX) 7.5-325 MG TABLET 1 TAB PO ×5 (03:58→20:27)
[2021-03-27 06:19] VITALS: BP 121/68; PULSE 74; RESP 16; TEMP 36.2; O2SAT 94
[2021-03-27] MEDS: IBUPROFEN IV 800 MG/200 ML 800 MG/200 ML BAG 400 MG IVPB ×3 (07:27→21:49)
[2021-03-27] MEDS: diazePAM (*CRX) 5 MG TABLET PO ×2 (07:28→15:18)
[2021-03-27] MEDS: GABAPENTIN 300 MG CAPSULE 600 MG PO ×2 (07:59→17:21)
[2021-03-27] MEDS: amLODIPine BESYLATE 5 MG TABLET 10 MG PO (07:59)
[2021-03-27] MEDS: HYDROXYCHLOROQUINE SULFATE 200 MG TABLET PO ×2 (07:59→17:21)
[2021-03-27] MEDS: APIXABAN 5 MG TABLET PO ×2 (07:59→17:21)
[2021-03-27] MEDS: lisinopriL 20 MG TABLET 40 MG PO (07:59)
[2021-03-27] MEDS: DOCUSATE SODIUM 100 MG CAPSULE PO ×2 (08:02→17:21)
[2021-03-27] MEDS: MORPHINE SULFATE (*CRX) 4 MG/ML INJ 3 MG IV PUSH ×2 (11:37→15:17)
[2021-03-27 14:00] VITALS: BP 101/63; PULSE 70; RESP 20; TEMP 36.5; O2SAT 92
--- NOTE | 2021-03-27 14:06 | PCPTNOTE ---
Attempted to see patient for PT at this time, however patient declined due to left ankle pain. RN aware.
--- NOTE | 2021-03-27 15:19 | PM.PNORT ---
Progress Note: A&P Assessment and Plan (1) Arthritis of foot, degenerative: Qualifiers: Osteoarthritis type: primary Laterality: left Qualified Code(s): M19.072 - Primary osteoarthritis, left ankle and foot Code(s): M19.079 - Primary osteoarthritis, unspecified ankle and foot Status: Acute Assessment and Plan: Postoperative day 2. Patient awake and alert. Tolerating diet. Pain not controlled. Physical therapy today. Nonweightbearing left lower extremity. Discharge home when cleared. IV morphine- D/C when tolerating pain with po meds (2) Pes planovalgus: Code(s): Q66.6 - Other congenital valgus deformities of feet Status: Acute Subjective Subjective Date/Time Seen: 03/27/21 15:19 Post Op day: 2 Principal diagnosis: LT foot arthritis Interval history: Awake, alert. Pain left medial ankle. Requiring morphine- 5/10 pain after morphine Review of Systems Constitutional: Constitutional: Denies fever(s) Eyes: Eyes: Denies blurry vision ENT: Reports Normal hearing present Cardiovascular: Cardiovascular: Denies chest pain and Denies dyspnea Respiratory: Respiratory: Denies dyspnea and Denies wheezing Gastrointestinal: Gastrointestinal: Denies abdominal pain Genitourinary: Genitourinary: Denies urinary urgency Musculoskeletal: Musculoskeletal: Reports as per HPI and Reports numbness ( Bilateral feet) Integumentary/Breasts: Skin/Breast: Denies changing lesions and Denies sores Neurologic: Reports Normal hearing present, Denies behavioral changes, Denies confusion, Reports numbness ( peripheral neuropathy) and Denies convulsions Psychiatric: Psychiatric: Denies behavioral changes, Denies confusion and Denies hallucinations Endocrine: Endocrine: Denies heat intolerance Hematologic/Lymphatic: Hematologic/Lymphatic: Denies easy bleeding Allergic/Immunologic: Allergic/Immunologic: Denies wheezing Exam Const: General: healthy appearing; No in distress or confusion Orientation/consciousness: patient oriented x3 and No confusion HENMT: Head: normal to inspection, normocephalic and atraumatic Eyes: Conjunctivae: conjunctivae normal Sclera: sclerae normal Resp: Effort & Inspection: normal respiratory effort and no audible wheezes Neuro: General: patient oriented x3 and No confusion Extrem: Left lower extremity: foot Details: normal capillary refill, tenderness Location: of the lateral foot and of the medial foot, vascular exam Details: dorsalis pedis pulse present and normal capillary refill and motor-sensory exam light-touch abnormal in all toes ( neuropathy) Other: No active bleeding or drainage. Left leg short-leg splint applied. Psych: Affect: normal affect Objective Data Vital Signs Vital Signs: Vital Signs - 24 hr 03/26/21 15:52 03/26/21 18:26 03/26/21 19:53 Temperature 97.3 F L 98 F Pulse Rate 75 75 85 Respiratory Rate 16 16 Blood Pressure 117/77 105/68 Pulse Oximetry 98 95 03/26/21 21:16 03/27/21 06:19 Temperature 97.1 F L Pulse Rate 92 74 Respiratory Rate 18 16 Blood Pressure 121/68 Pulse Oximetry 96 94 Intake/Output Intake/Output: Intake & Output 03/24/21 03/25/21 03/26/21 03/27/21 23:59 23:59 23:59 23:59 Intake Total 2370 2600 760 Output Total 1550 400 Balance 2370 1050 360 Meds/Results Medications: Active Medications Generic Name Dose Route Start Last Admin Trade Name Freq PRN Reason Stop Dose Admin Acetaminophen 650 mg 03/25/21 13:57 Acetaminophen 325 Mg Tablet PO Q6H PRN Fever Hydrocodone Bitart/Acetaminophen 1 tab 03/25/21 13:57 03/27/21 14:00 Hydrocodone/Acetaminophen (*Crx) 7.5-325 Mg Tablet PO 1 tab Q3H PRN Administration Pain Rated 4-6 Amlodipine Besylate 10 mg 03/26/21 09:00 03/27/21 07:59 Amlodipine Besylate 5 Mg Tablet PO 10 mg DAILY RED Administration Apixaban 5 mg 03/25/21 17:00 03/27/21 07:59 Apixaban 5 Mg Tablet PO 5 mg BID RED A
[2021-03-27 17:21] VITALS: PULSE 78
[2021-03-27] MEDS: METOPROLOL SUCCINATE EXT REL 25 MG TABCR PO (17:21)
[2021-03-27 20:41] VITALS: O2SAT 94
[2021-03-27 22:00] VITALS: BP 116/59; PULSE 73; RESP 20; TEMP 36.4; O2SAT 98
[2021-03-28 06:00] VITALS: BP 138/72; PULSE 61; RESP 18; TEMP 36.3; O2SAT 96
[2021-03-28] MEDS: HYDROcodone/acetaminophen (*CRX) 7.5-325 MG TABLET 1 TAB PO ×2 (08:46→14:35)
[2021-03-28] MEDS: IBUPROFEN IV 800 MG/200 ML 800 MG/200 ML BAG 400 MG IVPB (08:46)
[2021-03-28] MEDS: DOCUSATE SODIUM 100 MG CAPSULE PO ×2 (08:46→17:50)
[2021-03-28] MEDS: diazePAM (*CRX) 5 MG TABLET PO (08:46)
[2021-03-28] MEDS: APIXABAN 5 MG TABLET PO ×2 (08:47→17:50)
[2021-03-28] MEDS: amLODIPine BESYLATE 5 MG TABLET 10 MG PO (08:47)
[2021-03-28] MEDS: GABAPENTIN 300 MG CAPSULE 600 MG PO ×2 (08:47→17:49)
[2021-03-28] MEDS: lisinopriL 20 MG TABLET 40 MG PO (08:47)
[2021-03-28] MEDS: HYDROXYCHLOROQUINE SULFATE 200 MG TABLET PO ×2 (08:47→17:49)
[2021-03-28] MEDS: MORPHINE SULFATE (*CRX) 4 MG/ML INJ 3 MG IV PUSH (09:39)
--- NOTE | 2021-03-28 11:10 | PM.PNORT ---
Progress Note: A&P Assessment and Plan (1) Arthritis of foot, degenerative: Qualifiers: Osteoarthritis type: primary Laterality: left Qualified Code(s): M19.072 - Primary osteoarthritis, left ankle and foot Code(s): M19.079 - Primary osteoarthritis, unspecified ankle and foot Status: Acute Assessment and Plan: POD #3. Patient awake and alert. Tolerating diet. Pain better but still requiring morphine. Physical therapy today. Nonweightbearing left lower extremity. Discharge home when cleared Possibly later today. IV morphine prn. Wean to po meds. (2) Pes planovalgus: Code(s): Q66.6 - Other congenital valgus deformities of feet Status: Acute Subjective Subjective Date/Time Seen: 03/28/21 11:10 Post Op day: 3 Principal diagnosis: Left foot arthritis Interval history: patient states pain left foot and ankle when foot is dependent or with ambulation. No other complaints. Exam Const: General: healthy appearing; No in distress or confusion Orientation/consciousness: patient oriented x3 and No confusion HENMT: Head: normal to inspection, normocephalic and atraumatic Eyes: Conjunctivae: conjunctivae normal Sclera: sclerae normal Resp: Effort & Inspection: normal respiratory effort and no audible wheezes Neuro: General: patient oriented x3 and No confusion Extrem: Left lower extremity: foot Details: normal capillary refill, tenderness Location: of the lateral foot and of the medial foot, vascular exam Details: dorsalis pedis pulse present and normal capillary refill and motor-sensory exam light-touch abnormal in all toes ( neuropathy) Other: No active bleeding or drainage. Left leg short-leg splint In place. Psych: Affect: normal affect Objective Data Vital Signs Vital Signs: Vital Signs - 24 hr 03/27/21 14:00 03/27/21 17:21 03/27/21 20:41 Temperature 97.7 F Pulse Rate 70 78 Respiratory Rate 20 Blood Pressure 101/63 Pulse Oximetry 92 94 03/27/21 22:00 03/28/21 06:00 Temperature 97.5 F L 97.3 F L Pulse Rate 73 61 Respiratory Rate 20 18 Blood Pressure 116/59 L 138/72 Pulse Oximetry 98 96 Intake/Output Intake/Output: Intake & Output 10/28/21 10/29/21 10/30/21 10/31/21 23:59 23:59 23:59 23:59 Intake Total 2370 2600 1320 1030 Output Total 1550 650 500 Balance 2370 1050 670 530 Meds/Results Medications: Active Medications Generic Name Dose Route Start Last Admin Trade Name Freq PRN Reason Stop Dose Admin Acetaminophen 650 mg 03/25/21 13:57 Acetaminophen 325 Mg Tablet PO Q6H PRN Fever Hydrocodone Bitart/Acetaminophen 1 tab 03/25/21 13:57 03/28/21 08:46 Hydrocodone/Acetaminophen (*Crx) 7.5-325 Mg Tablet PO 1 tab Q3H PRN Administration Pain Rated 4-6 Amlodipine Besylate 10 mg 03/26/21 09:00 03/28/21 08:47 Amlodipine Besylate 5 Mg Tablet PO 10 mg DAILY RED Administration Apixaban 5 mg 03/25/21 17:00 03/28/21 08:47 Apixaban 5 Mg Tablet PO 5 mg BID RED Administration Diazepam 5 mg 03/25/21 13:57 03/28/21 08:46 Diazepam (*Crx) 5 Mg Tablet PO 5 mg Q8H PRN Administration Muscle Spasm Docusate Sodium 100 mg 03/25/21 17:00 03/28/21 08:46 Docusate Sodium 100 Mg Capsule PO 100 mg BID RED Administration Gabapentin 600 mg 03/25/21 17:00 03/28/21 08:47 Gabapentin 300 Mg Capsule PO 600 mg BID RED Administration Hydroxychloroquine Sulfate 200 mg 03/25/21 17:00 03/28/21 08:47 Hydroxychloroquine Sulfate 200 Mg Tablet PO 200 mg BID RED Administration Ibuprofen 800 mg in 200 mls @ 400 mls/hr 03/25/21 13:57 03/28/21 09:15 Caldolor 800 Mg/200 Ml IVPB Infused Q6H PRN Infusion Pain Rated 4-6, altrnate norco Lisinopril 40 mg 03/26/21 09:00 03/28/21 08:47 Lisinopril 20 Mg Tablet PO 40 mg DAILY RED Administration Magnesium Hydroxide 30 ml 03/25/21 13:57 Magnesium Hydroxide Susp 30 Ml Udc PO BID PRN Consti
[2021-03-28 14:00] VITALS: BP 121/65; PULSE 82; RESP 18; TEMP 36.9; O2SAT 97
[2021-03-28 17:50] VITALS: PULSE 78
[2021-03-28] MEDS: METOPROLOL SUCCINATE EXT REL 25 MG TABCR PO (17:50)
== END 2021-03-28 18:20 | disposition home health service (06) | DRG 501 ==
LOC: ANHSURGERY 16:12 → ANH3MED 16:12
PROVIDERS: Admitting Provider Orthopaedic Surgery; PCP Internal Medicine; Visit Provider Orthopaedic Surgery
PROC: 0SGJ04Z Fusion of Left Tarsal Joint with Internal Fixation Device, Open Approach (ICD-10-PCS; CPT 28715; principal; 2021-03-25 07:30)
PROC: 0SGJ04Z Fusion of Left Tarsal Joint with Internal Fixation Device, Open Approach (ICD-10-PCS; CPT 28750; 2021-03-25 07:30)
DX: M19.072 Primary osteoarthritis, left ankle and foot (principal); I50.32 Chronic diastolic (congestive) heart failure; I48.20 Chronic atrial fibrillation, unspecified; M67.02 Short Achilles tendon (acquired), left ankle; Q66.6 Other congenital valgus deformities of feet; G60.9 Hereditary and idiopathic neuropathy, unspecified; I11.0 Hypertensive heart disease with heart failure; M17.11 Unilateral primary osteoarthritis, right knee; G47.30 Sleep apnea, unspecified; E66.9 Obesity, unspecified; Z86.711 Personal history of pulmonary embolism; Z68.35 Body mass index [BMI] 35.0-35.9, adult; Z87.891 Personal history of nicotine dependence
CPT/HCPCS: 36415; 80048; 85025; 97110; 97116; 97162; 97165; 97530; 97535; A9270; C1713; J0690; J1100; J1741; J1885; J2250; J2270; J2370; J2405; J2704; J3010; J3480; J7120

== ENCOUNTER → 2021-05-01 00:24 | Outpatient (CLI) | payer MEDICARE, SELFPAY ==
[2021-05-01 18:54] LABS: SARS-CoV-2 RNA PCR Negative
== END ==
PROVIDERS: PCP Internal Medicine; Visit Provider Orthopaedic Surgery
DX: Z01.812 Encounter for preprocedural laboratory examination (principal); Z20.822 Contact with and (suspected) exposure to COVID-19
CPT/HCPCS: C9803; U0003; U0005

== ENCOUNTER 2021-05-05 01:47 | Day surgery (SDC) | payer MEDICARE, SELFPAY ==
[2021-04-28 15:12] VITALS: BMI 34.9
--- NOTE | 2021-04-28 15:12 | PC.NURSE ---
Report to the Outpatient Waiting Room, entrance under the green pavilion located off [facility], at time _1000 on date __05/05/21 . OR Time: 1200 . - You and your visitor will be asked a series of questions to screen for COVID 19 for your protection. - A mask is required within the hospital. - Only one visitor is allowed at this time. Patient visitors will be guided where to wait when not with patient. Preoperative COVID Testing Requirements: No COVID Test needed if: (proof is required; if not received patient will have Rapid Test prior to entry) - Patient has received COVID Vaccine at least 14 days prior to procedure date or - Patient has positive COVID test result within last 90 days of surgery date. COVID TESTING 05/01/21 AT 0850 COVID Test needed if above criteria is not met If not COVID vaccinated a COVID test must be conducted within 72 hours of surgery and patient is asked to isolate self from time of testing until procedure. You will go to the [facility] for your COVID testing. The [facility] site is located at the corner of [address] [facility]. You will only be called if COVID results are positive and your surgeon may reschedule your elective surgery date. Patients may have clear liquids (water, carbonated beverages, clear teas, apple juice) until 3 hours prior to surgery with a maximum of 20 ounces. - No food from midnight until time of surgery - Infants may have breast milk until 4 hours before surgery, formula 6 hours prior to surgery. - Children will be allowed to drink immediately following surgery. If applicable, please bring a bottle or sippy cup to assist with drinking. Juice, water, soda, and popsicles are readily available. For infants on formula, please bring formula the day of surgery. Pacifiers are allowed. Take the following medications with a SIP of water the morning of surgery: ___AMLODIPINE AND GABAPENTIN Medications to discontinue per physician ____ELIQUIS PER DR LOZANO . ALL VITAMINS AND SUPPLEMENTS 3 DAYS PRE OP Date to take last dose_05/01/21 Please no make-up, nail peruvian, hairspray, perfume, deodorant, or body powder the day of surgery. No jewelry (including any body piercings) or valuables the day of surgery, leave them at home. Please take a shower or bath the night before, or the morning of, surgery with an antibacterial soap. Wear comfortable, loose fitting clothing. Children are encouraged to wear pajamas. - Jewelry must be removed prior to entering the operating room. Rings and piercings that are not removed may be cut off. - The hospital will not accept responsibility for valuables. - Please leave all valuables, including medications, at home the day of surgery. If you are going home after surgery, a licensed water truck driver must drive you home. - NO public transportation without another adult. - We recommend that an adult stay with you for 24 hours following discharge. - We also recommend that you do not drive, make important decision, drink alcoholic beverages, or take any drugs that were not prescribed by your health care provider for at least 24 hours after your discharge time. For Pediatric surgeries, we recommend two adults accompany the child home (only one inside the building at this time). Follow any additional instructions given to you from your surgeon. Telephone instructions given to _PATIENT and asked if any additional questions and then verbalized understanding. Patient advised to call surgeon office or pre surgery nurse liaison [phone] if any additional questions.
[2021-05-05] VITALS (8 sets, daily range): BP systolic 106–133; BP diastolic 69–80; PULSE 65–75; RESP 10–16; TEMP 36.1–36.4; O2SAT 95–100
--- NOTE | ~2021-05-05 | XR_ITS ---
EXAMINATION: XR surgery orthopedic DATE: 05/05/2021 13:57 INDICATION: Left hallux valgus correction TECHNIQUE: 4 fluoroscopic images of the left forefoot were obtained during procedure performed by Dr. Baldwin. Radiologist was not present for the imaging or procedure. The amount of fluoroscopy time us ed during this procedure was 0.1 minutes. COMPARISON: Radiographs dated 04/21/2021 FINDINGS: Postoperative changes along the first ray including realignment osteotomies with stable fixations at the base of the first proximal phalanx and first metatarsal and additional unfixed related with osteo jassi at the distal neck of the first metatarsal. Reduction of the prior hallux valgus with now near-a natomic alignment of the axis of the first ray. Suggestion of a bunionectomy at the medial head of th e first metatarsal. No fractures identified. IMPRESSION: 1. Expected appearance post left hallux valgus correction as detailed above. See procedure note for f urther detail. Reviewed, dictated and finalized at location B. GENICS REPAIRER IMPRESSION: 1. Expected appearance post left hallux valgus correction as detailed above. Se e procedure note for further detail.
[2021-05-05] MEDS: ACETAMINOPHEN 500 MG TABLET 1000 MG PO (10:48)
[2021-05-05] MEDS: LACTATED RINGERS 1,000 ML 30 ML IV CONT ×2 (11:17→14:05)
[2021-05-05] MEDS: KETOROLAC 15 MG/ML VIAL (*BKC) IV PUSH (11:18)
--- NOTE | 2021-05-05 11:29 | SUR.PREOP ---
1128 cast to left lower leg removed and foot shaved with clippers. dry skin intact incision to inner aspect of ankle intact.
--- NOTE | 2021-05-05 11:56 | WPDHPUPDATE1 ---
History and Physical Update Update Date/Time: 05/05/21 11:56 History and Physical has been reviewed, including an updated exam of the patient. There are NO changes in the patient's condition. Risks, benefits, and alternatives have been discussed and questions answered. Patient agrees to proceed with procedure.
--- NOTE | 2021-05-05 12:21 | WPDANESEPPF ---
Anes - Initial Pre Proc Eval Procedure: Operation Date: 05/05/21 12:00 Proposed Procedures p Left Hallux Valgus Correction with First Metatarsal Osteotomy, Possible Phalangeal Osteotomy - Harley Baldwin MD Date/Time: 05/05/21 12:21 Surgeon: Harley Baldwin MD Pre Op Diagnosis: Lt Hallux Valgus Patient Data Age: 65 Gender: M Height: 1.91 m Weight: 129 kg Last Vital Signs Temp 97 F L 05/05/21 10:32 Pulse 75 05/05/21 10:32 Resp 16 05/05/21 10:32 BP 133/76 05/05/21 10:32 Pulse Ox 99 05/05/21 10:32 Allergies Allergy/AdvReac Type Severity Reaction Status Date / Time benzoin Allergy Mild blisters Verified 05/05/21 10:43 gum mastic Allergy Mild blisters Verified 05/05/21 10:43 adhesive tape AdvReac Mild blisters Verified 05/05/21 10:43 Home Medications Medication Instructions Recorded Confirmed Type amlodipine 10 mg tablet 10 mg PO DAILY 02/26/20 05/05/21 History apixaban 5 mg tablet 5 mg PO BID 02/26/20 05/05/21 History gabapentin 300 mg capsule 600 mg PO BID 02/26/20 05/05/21 History lisinopril 40 mg tablet 40 mg PO DAILY 02/26/20 05/05/21 History fluocinonide 0.05 % topical cream 1 applic TOPICAL PRN PRN 10/07/20 05/05/21 History hydroxychloroquine 200 mg PO BID 03/22/21 05/05/21 History metoprolol succinate 25 mg PO QPM 03/22/21 05/05/21 History diazepam [Valium] 5 mg PO Q8H PRN #20 tablet 03/26/21 05/05/21 Rx hydrocodone 7.5 mg-acetaminophen 1 tablet PO Q4H PRN #30 tablet 03/31/21 05/05/21 Rx 325 mg tablet multivitamin,[id number]-huhl-[id number] 1 tablet PO DAILY 04/28/21 05/05/21 History [Complete Multivitamin] Patient hx anesthesia problems: none Family hx anesthesia problems: none Results Review: All pre-operative results and documents have been reviewed as part of the pre-operative evaluation. FOR[facility]LY [facility] Past Medical History Medical History Abnormality of heart beat Achilles tendon contracture, left Achilles tendon contracture, right Afib Arthritis Arthritis of foot, degenerative CHF (congestive heart failure) diastolic Chronic narcotic use Constipation Degenerative arthritis of right knee Dizziness Encounter for Postoperative Care History of pulmonary embolism Hypertension Idiopathic neuropathy Obesity Pes planovalgus Sleep apnea Sleep disorder Vision changes Weight gain Surgical History Surgical History History of foot surgery bilateral heal spur removal Social History Social History Smoking packs per day: 1.5 Smoking cigarettes per day: 30.0 Years smoked: 10 Smoking pack-years: 15.00 Smoking status: Former smoker Tobacco type: cigarettes Smoking end date: 05/29/84 Additional smoking assessment comments: STATES 1-2PK/DAY/10YRS - QUIT AGE 26? Alcohol intake: former Substance use: never Living arrangements: with family Spiritual care concerns: No Anes - Eval Final PreProcedure Day of Procedure 05/05/21 12:21 Patient weight: obese Heart: irregular rhythm Lungs: clear to auscultation Airway: Mallampati scale class III Neurological: alert and oriented Last oral intake: >/= 8 hours ASA classification: IV Emergent: no Anesthetic plan: proceed Anesthesia type and monitoring: general LMA and standard monitoring Results Review: All pre-operative results and documents have been reviewed as part of the pre-operative evaluation. Informed Consent: The patient's anesthetic plan and its attendant risks and benefits were discussed with the patient/family/POA. Questions were solicited and answers provided to the satisfaction of the patient/family/POA.
[2021-05-05] MEDS: ceFAZolin 3 GM/D5W 100 ML 100 ML IVPB (12:25)
[2021-05-05] MEDS: BUPIVACAINE HCL 0.5% PF 30 ML VIAL 20 ML INFILTRATE (13:59)
--- NOTE | 2021-05-05 14:14 | SUR.OPER ---
ALL X RAYS DONE IN OR PER DR LOZANO
--- NOTE | 2021-05-05 14:23 | W.PM.PROC2 ---
Procedure Note - Detailed Date of Procedure 05/05/21 Pre-op Diagnosis Lt Hallux Valgus Post-op Diagnosis same Procedure Performed Left hallux valgus correction with triple osteotomy Surgeon Harley Baldwin MD Commercial Interior Designer assistant technician Anesthesia general Indications 65-year-old gentleman with severe bilateral flatfoot deformity and hallux valgus deformity. Underwent left foot reconstruction with triple arthrodesis 2 months ago. Now for stage procedure with correction of the hallux valgus at this. Description of Procedure What was done: Patient identified in the preoperative holding. Informed consent given. Operative extremity marked. Patient received intravenous antibiotics. Patient brought to the operating room where underwent general anesthetic by anesthesia team. Positioned supine on operating room table. Time-out performed confirming the patient, site of the surgery and the plan. Left foot prepped draped usual sterile surgical fashion using ChloraPrep skin solution. Foot and Ankle exsanguinated and calf tourniquet inflated to 225 mmHg. Longitudinal incision made over the medial eminence and the base of the hallux with a 15 blade knife. Hemostasis controlled with electrocautery. Sensory elements identified and protected. Medial capsulotomy then performed to expose the medial eminence and the metatarsophalangeal joint. Medial eminence resected in line with the medial border of the foot. Lateral release performed through the joint with a 15 blade knife under direct visualization. Chevron shaped osteotomy then completed from medial to lateral with the sagittal saw. The lateral aspect completed with an osteotome. Capital fragment was then displaced laterally and impacted back on the 1st metatarsal shaft. This was provisionally pinned and checked with image intensification. Fixation achieved with 2.0 mm absorbable pin x2. Fluoroscopy confirmed reduction. Residual valgus interphalangeus was noted. Proximal phalangeal osteotomy then performed. Dissection over the medial aspect of the base of the proximal phalanx of the hallux. Retractors placed sagittal saw used to make a medial closing wedge osteotomy. Fixation achieved with a 9 mm Nitinol staple. Image intensification confirmed reduction and hardware placement. Wounds thoroughly irrigated and the capsule repaired with 2-0 Vicryl interrupted suture. Subcutaneous tissue repaired with 3-0 Monocryl interrupted suture and skin repaired with 4-0 nylon running suture. There was still dorsal way larson of the 1st ray noted on the lateral radiograph. A proximal 1st metatarsal osteotomy was indicated. Dorsal longitudinal incision made over the base of the 1st metatarsal 15 blade knife. The extensor tendon was retracted laterally. Retractors placed in a opening wedge osteotomy was performed from dorsal to plantar. Bone graft was packed into the dorsal aspect to correct about 5 mm of opening. Fixation achieved with a 2.0 mm absorbable pin and a 9 mm staple. Image intensification confirmed final positioning placement. Wound thoroughly irrigated with solution. Soft tissue closed with 3-0 Monocryl interrupted suture and skin repaired with 4-0 nylon running suture. Sterile dressing applied. The patient was then woken from anesthesia, extubated and taken to the recovery room in stable condition. All sponge, needle, instrument counts were correct at the end of the case. Implants Arthrex 9 mm staple x2 2.0 mm trim it pin X 2 Estimated Blood Loss 5 Tourniquet Time 69 Drains No Packing No Pathology none sent Complications None Condition stable Disposition PACU
== END 2021-05-05 16:35 | disposition home or self-care (01) ==
PROVIDERS: PCP Internal Medicine; Visit Provider Orthopaedic Surgery
PROC: (CPT 28750; principal; 2021-05-05 12:00)
DX: M20.12 Hallux valgus (acquired), left foot (principal); I11.0 Hypertensive heart disease with heart failure; I50.30 Unspecified diastolic (congestive) heart failure; I48.91 Unspecified atrial fibrillation; G60.9 Hereditary and idiopathic neuropathy, unspecified; G47.30 Sleep apnea, unspecified; Z86.711 Personal history of pulmonary embolism; E66.9 Obesity, unspecified; Z68.35 Body mass index [BMI] 35.0-35.9, adult; Z87.891 Personal history of nicotine dependence
CPT/HCPCS: 28299; A9270; C1713; J0690; J1100; J1885; J2250; J2405; J2704; J3010; J7120

== ENCOUNTER 2022-03-21 10:26 | Outpatient (CLI) | payer MEDICARE, SELFPAY ==
--- NOTE | 2022-03-21 10:35 | ECG_ITS ---
Measurements Intervals [place] Rate: 69 P: [place]: 0 QRS: 17 QRSD: 106 T: 19 QT: 425 QTc: 456 Interpretive Statements ATRIAL FIBRILLATION BASELINE ARTIFACT INCOMPLETE RIGHT BUNDLE BRANCH BLOCK NONSPECIFIC ST & T-WAVE ABNORMALITY ABNORMAL ECG NO PREVIOUS ECG AVAILABLE FOR COMPARISON Electronically Signed On 03-21-2022 16:14:15 CDT by Bernardino Pate M.D.
== END 2022-03-21 10:27 | disposition home or self-care (01) ==
LOC: ANHSURGERY 10:31
PROVIDERS: PCP Internal Medicine; Visit Provider Orthopaedic Surgery
DX: Z01.810 Encounter for preprocedural cardiovascular examination (principal); I10 Essential (primary) hypertension; R94.31 Abnormal electrocardiogram [ECG] [EKG]
CPT/HCPCS: 93005

== ENCOUNTER 2022-03-24 00:28 | Day surgery (SDC) | payer MEDICARE, SELFPAY ==
--- NOTE | 2022-03-14 10:47 | PC.NURSE ---
Report to the Outpatient Waiting Room, entrance under the green pavilion located off [facility], at time 0600 on date __03/24/22 . OR Time: _0800 . Time changes happen often and if your time is changed the preop area will call you the afternoon before. - You and your visitor will be asked to self-screen and do not enter if you have any COVID symptoms. - We encourage only one visitor and NO visitors under age 16 are allowed at this time. Your visitor will receive communication by the phone number that is given day of service. - The patient visitor is requested to social distance or may leave the building when not with patient due to restrictions. - A mask is required within the hospital. Patients may have clear liquids (water, carbonated beverages, clear teas, apple juice) until 3 hours prior to surgery with a maximum of 20 ounces. - No food from midnight until time of surgery - Infants may have breast milk until 4 hours before surgery, formula 6 hours prior to surgery. - Children will be allowed to drink immediately following surgery. If applicable, please bring a bottle or sippy cup to assist with drinking. Juice, water, soda, and popsicles are readily available. For infants on formula, please bring formula the day of surgery. Pacifiers are allowed. Take the following medications with a SIP of water the morning of surgery: _AMLODIPINE,GABAPENTIN Medications to discontinue per physician __PT STATES ELIQUIS 2 DAYS PRE OP PER DR LOZANO_AND__METHOTREXATE 7 DAYS PRE OP PER RHEUMATOLOGIST Date to take last dose____03/21/22 ELIQUIS AND METHOTREXATE 03/16/22 Please no make-up, nail cape verdean, hairspray, perfume, deodorant, or body powder the day of surgery. No jewelry (including any body piercings) or valuables the day of surgery, leave them at home. Please take a shower or bath the night before, or the morning of, surgery with an antibacterial soap. Wear comfortable, loose fitting clothing. Children are encouraged to wear pajamas. - Jewelry must be removed prior to entering the operating room. Rings and piercings that are not removed may be cut off. - The hospital will not accept responsibility for valuables. - Please leave all valuables, including medications, at home the day of surgery. If you are going home after surgery, a licensed sprinkler truck driver must drive you home. - NO public transportation without another adult. - We recommend that an adult stay with you for 24 hours following discharge. - We also recommend that you do not drive, make important decision, drink alcoholic beverages, or take any drugs that were not prescribed by your health care provider for at least 24 hours after your discharge time. For Pediatric surgeries, we recommend two adults accompany the child home. Follow any additional instructions given to you from your surgeon. If you or anyone in your household have experienced Covid symptoms in the past week, please notify your surgeon or the nurse liaison at the phone number below for possible testing. Telephone instructions given to ___PATIENT and asked if any additional questions and then verbalized understanding. Patient advised to call surgeon office or pre surgery nurse liaison [phone] if any additional questions.
[2022-03-14 10:57] VITALS: BMI 35.6
--- NOTE | 2022-03-23 11:56 | PM.IMHP ---
H&P: HPI History of Present Illness Date/Time: 03/23/22 11:56 Chief Complaint: Right hallux valgus Narrative: 66-year-old gentleman with peripheral neuropathy and right hallux valgus deformity. Pain with shoe wear and activity. Pre ulcerative skin changes noted. Failed conservative treatment with accommodative shoes and inserts. Presents for operative treatment. Review of Systems Constitutional: Constitutional: Denies fever(s) Eyes: Eyes: Denies blurry vision ENT: Reports Normal hearing present Cardiovascular: Cardiovascular: Denies chest pain and Denies dyspnea Respiratory: Respiratory: Denies dyspnea and Denies wheezing Gastrointestinal: Gastrointestinal: Denies abdominal pain Genitourinary: Genitourinary: Denies urinary urgency Musculoskeletal: Musculoskeletal: Reports as per HPI and Reports numbness ( Bilateral feet) Integumentary/Breasts: Skin/Breast: Denies changing lesions and Denies sores Neurologic: Reports Normal hearing present, Denies behavioral changes, Denies confusion, Reports numbness ( peripheral neuropathy) and Denies convulsions Psychiatric: Psychiatric: Denies behavioral changes, Denies confusion and Denies hallucinations Endocrine: Endocrine: Denies heat intolerance Hematologic/Lymphatic: Hematologic/Lymphatic: Denies easy bleeding Allergic/Immunologic: Allergic/Immunologic: Denies wheezing PMFSH Past Medical History Medical History Abnormality of heart beat Achilles tendon contracture, left Achilles tendon contracture, right Afib Arthritis Arthritis of foot, degenerative CHF (congestive heart failure) diastolic Chronic narcotic use Constipation Degenerative arthritis of right knee Dizziness Encounter for Postoperative Care Hallux valgus (acquired), right foot History of pulmonary embolism Hypertension Idiopathic neuropathy Malunion of joint fusion Obesity Pes planovalgus Sleep apnea Sleep disorder Vision changes Weight gain Surgical History Surgical History History of foot surgery bilateral heal spur removal Social History Social History Smoking packs per day: 1.5 Smoking cigarettes per day: 30.0 Years smoked: 10 Smoking pack-years: 15.00 Smoking status: Former smoker Tobacco type: cigarettes Smoking end date: 05/29/84 Additional smoking assessment comments: STATES 1-2PK/DAY/10YRS - QUIT AGE 26? Alcohol intake: former Substance use: never Gender identity (if verbalized by the patient): Male Sexual Orientation (if Verbalized by the Patient): Straight or Heterosexual Spiritual care concerns: No Meds Home Medications and Allergies Home Medications Medication Instructions Recorded Confirmed Type amlodipine 10 mg tablet 10 mg PO DAILY 02/26/20 03/14/22 History apixaban 5 mg tablet (Eliquis) 5 mg PO BID 02/26/20 03/14/22 History gabapentin 300 mg capsule 600 mg PO BID 02/26/20 03/14/22 History lisinopril 40 mg tablet 40 mg PO DAILY 02/26/20 03/14/22 History fluocinonide 0.05 % topical cream 1 applic topical PRN PRN Itching 10/07/20 03/14/22 History multivitamin,bc-fcew-blfpdwms 1 tablet PO DAILY 04/28/21 03/14/22 History cyclobenzaprine 10 mg tablet 10 mg PO TID PRN Muscle Pain 03/14/22 03/14/22 History folic acid 1 mg tablet 1 mg PO DAILY 03/14/22 03/14/22 History methotrexate sodium 2.5 mg tablet 15 mg PO WEEKLY 03/14/22 03/14/22 History prednisone 5 mg tablet 5 mg PO QNOON 03/14/22 03/14/22 History propranolol 60 mg capsule,24 60 mg PO HS 03/14/22 03/14/22 History hr,extended release trazodone 50 mg tablet 50 mg PO PRN PRN Pain 03/14/22 03/14/22 History Allergies Allergy/AdvReac Type Severity Reaction Status Date / Time benzoin Allergy Mild blisters Verified 03/14/22 10:24 gum mastic Allergy Mild blisters Verified 03/14/22 10:24 adhesive tape AdvReac Mild b
--- NOTE | 2022-03-23 16:15 | WPDANESEPPF ---
Anes - Initial Pre Proc Eval Procedure: Operation Date: 03/24/22 08:00 Proposed Procedures p Right Hallux Valgus Correction, First Metatarsal Osteotomy, Possible Phalangeal Osteotomy, Peroneal Tendon Transfer - Harley Baldwin MD Date/Time: 03/23/22 16:15 Surgeon: Harley Baldwin MD Pre Op Diagnosis: right hallux valgus Patient Data Age: 66 Gender: M Height: 1.91 m Weight: 129.3 kg Allergies Allergy/AdvReac Type Severity Reaction Status Date / Time benzoin Allergy Mild blisters Verified 03/24/22 06:33 gum mastic Allergy Mild blisters Verified 03/24/22 06:33 adhesive tape AdvReac Mild blisters Verified 03/24/22 06:33 Home Medications Medication Instructions Recorded Confirmed Type amlodipine 10 mg tablet 10 mg PO DAILY 02/26/20 03/24/22 History apixaban 5 mg tablet (Eliquis) 5 mg PO BID 02/26/20 03/24/22 History gabapentin 300 mg capsule 600 mg PO BID 02/26/20 03/14/22 History lisinopril 40 mg tablet 40 mg PO DAILY 02/26/20 03/14/22 History fluocinonide 0.05 % topical cream 1 applic topical PRN PRN Itching 10/07/20 03/14/22 History multivitamin,fn-[id number] 1 tablet PO DAILY 04/28/21 03/24/22 History cyclobenzaprine 10 mg tablet 10 mg PO TID PRN Muscle Pain 03/14/22 03/14/22 History folic acid 1 mg tablet 1 mg PO DAILY 03/14/22 03/14/22 History methotrexate sodium 2.5 mg tablet 15 mg PO WEEKLY 03/14/22 03/24/22 History prednisone 5 mg tablet 5 mg PO QNOON 03/14/22 03/14/22 History propranolol 60 mg capsule,24 60 mg PO HS 03/14/22 03/14/22 History hr,extended release trazodone 50 mg tablet 50 mg PO PRN PRN Pain 03/14/22 03/14/22 History Patient hx anesthesia problems: none Family hx anesthesia problems: none Results Review: All pre-operative results and documents have been reviewed as part of the pre-operative evaluation. [facility] Past Medical History Medical History Abnormality of heart beat Achilles tendon contracture, left Achilles tendon contracture, right Afib Arthritis Arthritis of foot, degenerative CHF (congestive heart failure) diastolic Chronic narcotic use Constipation Degenerative arthritis of right knee Dizziness Encounter for Postoperative Care Hallux valgus (acquired), right foot History of pulmonary embolism Hypertension Idiopathic neuropathy Malunion of joint fusion Obesity Pes planovalgus Sleep apnea Sleep disorder Vision changes Weight gain Surgical History Surgical History History of foot surgery bilateral heal spur removal Social History Social History Smoking packs per day: 1.5 Smoking cigarettes per day: 30.0 Years smoked: 10 Smoking pack-years: 15.00 Smoking status: Former smoker Tobacco type: cigarettes Smoking end date: 05/29/84 Additional smoking assessment comments: STATES 1-2PK/DAY/10YRS - QUIT AGE 26? Alcohol intake: former Substance use: never Living arrangements: with family Gender identity (if verbalized by the patient): Male Sexual Orientation (if Verbalized by the Patient): Straight or Heterosexual Spiritual care concerns: No Anes - Eval Final PreProcedure Day of Procedure 03/23/22 16:15 Patient weight: obese Heart: irregular rhythm Lungs: clear to auscultation Airway: Mallampati scale class III Neurological: alert and oriented Last oral intake: >/= 8 hours ASA classification: IV Emergent: no Anesthetic plan: proceed Anesthesia type and monitoring: general LMA and standard monitoring Results Review: All pre-operative results and documents have been reviewed as part of the pre-operative evaluation. Informed Consent: The patient's anesthetic plan and its attendant risks and benefits were discussed with the patient/family/POA. Questions were solicited and answers provided to the satisfaction of the patient/family/POA.
--- NOTE | 2022-03-23 16:15 | WPDANESPNB ---
Anes - Peripheral Nerve Block Date/Time: 03/23/22 16:15 I have discussed with the patient/family/POA the placement of a peripheral nerve block for post-operative pain management, including associated risks, benefits, complications, and side effects. Alternative methods of post-operative analgesia were detailed. Questions were solicited and answers provided to the satisfaction of the patient/family/POA. Time-Out: A pre-procedural Time-Out was completed immediately before starting the procedure and confirmed: Patient Identification, Site, Procedure, Patient Position and the Availability of Requisite Equipment. Clinical Indications: Acute post-operative pain management requested by the operative surgeon. Nerve Block Insertion Note Needle: 22 gauge, stimulating, insulated echogenic needle.
[2022-03-24] VITALS (11 sets, daily range): BP systolic 90–131; BP diastolic 61–91; PULSE 54–65; RESP 12–16; TEMP 36.6–37.2; O2SAT 93–98; BMI 36.3
--- NOTE | ~2022-03-24 | XR_ITS ---
EXAMINATION: XR surgery orthopedic DATE: 03/24/2022 10:15 INDICATION: Right hallux valgus correction TECHNIQUE: 3 fluoroscopic images of the forefoot were obtained during procedure performed by Dr. Neil elkins. Radiologist was not present for the imaging or procedure. The amount of fluoroscopy time used du ring this procedure was 0.3 minutes. COMPARISON: None. FINDINGS: Postoperative change of consistent with hallux valgus correction including a realignment chevron oste otomy of the first metatarsal diaphysis fixed with a couple leg screws and a likely medial closing we dge osteotomy near the base of the first proximal phalanx fixed with a dorsal/medial sided staple. Th ere also appears to been a bunionectomy with osteotomy at the medial head of the first metatarsal. Al ignment of the axis of the first ray appears near-anatomic. No fractures. Mild osteoarthritis at the first metatarsophalangeal joint. Expected small amount of soft tissue gas at the operative bed. IMPRESSION: 1. Fluoroscopy utilized during right hallux valgus correction as detailed above. See procedure note f or further detail. Reviewed, dictated and finalized at location A. IMPRESSION: 1. Fluoroscopy utilized during right hallux valgus correction as detailed above . See procedure note for further detail.
[2022-03-24] MEDS: LACTATED RINGERS 1,000 ML 30 ML IV CONT ×2 (06:55→10:34)
[2022-03-24] MEDS: ACETAMINOPHEN 500 MG TABLET 1000 MG PO (07:00)
[2022-03-24] MEDS: KETOROLAC 15 MG/ML VIAL (*BKC) IV PUSH (07:00)
--- NOTE | 2022-03-24 07:36 | WPDHPUPDATE1 ---
History and Physical Update Update Date/Time: 03/24/22 07:36 History and Physical has been reviewed, including an updated exam of the patient. There are NO changes in the patient's condition. Risks, benefits, and alternatives have been discussed and questions answered. Patient agrees to proceed with procedure.
--- NOTE | 2022-03-24 08:15 | SUR.PREOP ---
0815- Notified patient and spouse delay to start time. Patient and spouse verbalized understanding.
[2022-03-24] MEDS: ceFAZolin 3 GM/D5W 100 ML 100 ML IVPB (08:28)
[2022-03-24] MEDS: BUPIVACAINE HCL 0.5% PF 30 ML VIAL INFILTRATE (09:03)
--- NOTE | 2022-03-24 10:47 | W.PM.PROC2 ---
Procedure Note - Detailed Date of Procedure 03/24/22 Pre-op Diagnosis right hallux valgus Post-op Diagnosis Same Procedure Performed Right hallux valgus correction with double osteotomy, peroneal tendon reconstruction. Surgeon Harley Baldwin MD [employer] expanded function dental assistant Anesthesia General Indications 66-year-old gentleman with peripheral neuropathy and foot deformity. Right hallux valgus deformity and difficulty with shoe wear and activity. Flatfoot contributing to with peroneal tendon over activity. Has failed conservative treatment. Now presents for operative treatment. Findings Hallux metatarsophalangeal intra-articular debris consistent with gout or inflammatory arthritis. Description of Procedure After informed consent was given, the operative extremity was marked in the preoperative holding area. The patient received intravenous antibiotics. The patient was brought to the operating room where they underwent a general anesthetic by the anesthesia team. The patient was positioned supine on the operating room table. A time-out was performed confirming the patient, site of the surgery, and the plan for surgery. The right lower extremity was then prepped and draped in the usual sterile surgical fashion using ChloraPrep skin solution. Foot and ankle were exsanguinated and a calf tourniquet was inflated to 250 mmHg pressure. A longitudinal incision was then made along the medial border of the 1st ray centered over the medial eminence with a #15 blade knife. Hemostasis was controlled with electric cautery. The dorsal and plantar sensory nerves were identified and retracted bluntly. A medial capsulotomy was then performed. This was reflected off the medial eminence. The joint was inspected for evaluation of degenerative changes. A lateral release was then performed through the joint with a #15 blade knife. The medial eminence was then resected with a sagittal saw in line with the medial border of the foot. Correction of the deformity was performed with a z-shaped osteotomy performed with sagittal saw from medial to lateral through the distal portion of the 1st metatarsal. The lateral portion of the bone cut was completed with an osteotome to protect the soft tissue. The capital fragment was then translated laterally and impacted on to the 1st metatarsal shaft. Lateral translation and impaction corrected both hallux valgus deformity and correction of the distal metatarsal articular angle. Temporary fixation was performed and alignment was verified with image intensification. Hallux valgus angle correction, intermetatarsal angle correction and distal metatarsal articular angle were verified. Fixation was achieved with 2.0 millimeter bioabsorbable pins. Two pins were utilized. For the metatarsal portion of the osteotomy fixation was achieved with 3.0 mm partially-threaded cannulated screws x2. Image intensification confirmed final alignment. Rotation was verified visually. The wound was then thoroughly irrigated with antibiotic solution. The capsule was repaired through a drill hole in the distal 1st metatarsal with 0 Vicryl interrupted suture. The dorsal limb of the capsule was repaired with 00 Vicryl interrupted suture. Subcutaneous tissue was repaired with 000 Monocryl interrupted suture and the skin approximated with 0000 nylon running suture. Local anesthetic with 0.5% Marcaine plain was injected in the soft tissue. Clinically and fluoroscopically there was still hallux valgus interphalangeus present. Proximal phalanx osteotomy was indicated. Medial incision made along the proximal phalanx with 15 blade knife. Hemostasis controlled electrocautery. Dissection down to the medial aspect of the proximal phalanx. Retractors placed. Sagittal saw used to make a medial closing wedge osteotomy transversely across the proximal phalanx. Image intensification confirmed placement of the osteotomy. Fixation was achieved with the Arthrex 10 millimeter x
[2022-03-24] MEDS: fentaNYL CITRATE INJ (*CRX) 100 MCG/2 ML VIAL 25 MCG IV PUSH ×3 (11:04→11:16)
== END 2022-03-24 13:43 | disposition home or self-care (01) ==
PROVIDERS: PCP Internal Medicine; Visit Provider Orthopaedic Surgery
PROC: (CPT 28299; principal; 2022-03-24 08:00)
DX: M20.11 Hallux valgus (acquired), right foot (principal); G60.9 Hereditary and idiopathic neuropathy, unspecified; I48.91 Unspecified atrial fibrillation; I11.0 Hypertensive heart disease with heart failure; I50.30 Unspecified diastolic (congestive) heart failure; G47.30 Sleep apnea, unspecified; Z87.891 Personal history of nicotine dependence; Z79.01 Long term (current) use of anticoagulants; E66.9 Obesity, unspecified; Z68.36 Body mass index [BMI] 36.0-36.9, adult
CPT/HCPCS: 28299; 27690; 93005; 99199; A9270; C1713; J0690; J1100; J1170; J1885; J2250; J2370; J2704; J3010; J7120

== ENCOUNTER 2024-03-14 13:15 | Outpatient (CLI) | payer MEDICARE, SELFPAY ==
--- NOTE | ~2024-03-14 | XR_ITS ---
EXAMINATION: XR abdomen/kub 1V DATE: 03/14/2024 13:36 INDICATION: Renal calculi. TECHNIQUE: A supine view of the abdomen on 2 radiographs was obtained. COMPARISON: None. FINDINGS: There are no dilated loops of bowel. There are multiple calcifications in the pelvis, likel y phleboliths. IMPRESSION: 1. Multiple calcifications in the pelvis, likely phleboliths. Distal ureteral stone cannot be exclude d on either side. Reviewed, dictated and finalized at location A. IMPRESSION: 1. Multiple calcifications in the pelvis, likely phleboliths. Distal ureteral s tone cannot be excluded on either side.
== END 2024-03-14 13:16 | disposition home or self-care (01) ==
PROVIDERS: PCP Internal Medicine; Visit Provider Urology
DX: N20.0 Calculus of kidney (principal)
CPT/HCPCS: 74018

== ENCOUNTER 2024-08-17 09:17 | Emergency (ER) | payer MEDICARE, SELFPAY ==
--- NOTE | 2024-08-17 09:29 | ED.GENADULT ---
HPI - General Adult General Chief complaint: Upper Respiratory Infection Stated complaint: JAW PAIN/SWELLING Time Seen by Provider: 08/17/24 09:30 Source: patient Mode of arrival: ambulatory Limitations: no limitations History of Present Illness HPI narrative: 69-year-old male patient presents to the [facility] with complaints of right-sided cheek swelling and pain. Patient states pain started and started noticing the swelling yesterday. Patient denies any dental pain states he went to his dentist last month and had a fine checkup. Patient denies any fevers, body aches or chills. Patient is on methotrexate for psoriatic arthritis. Patient states he was just on antibiotics last month due to a sinus infection. Related Data Home Medications ?Medication ?Instructions ?Recorded ?Confirmed ?Last Taken ?Type amlodipine 10 mg tablet 10 mg PO DAILY 02/26/20 08/17/24 03/24/22 History 0500 apixaban 5 mg tablet (Eliquis) 5 mg PO BID 02/26/20 08/17/24 03/20/22 History gabapentin 300 mg capsule 600 mg PO BID 02/26/20 08/17/24 05/05/21 History fluocinonide 0.05 % topical cream 1 applic topical PRN PRN Itching 10/07/20 08/17/24 Unknown History multivitamin,nu-[id number]-[id number] 1 tablet PO DAILY 04/28/21 08/17/24 03/20/22 History cyclobenzaprine 10 mg tablet 10 mg PO TID PRN Muscle Pain 03/14/22 08/17/24 Unknown History folic acid 1 mg tablet 1 mg PO DAILY 03/14/22 08/17/24 Unknown History methotrexate sodium 2.5 mg tablet 15 mg PO WEEKLY 03/14/22 08/17/24 03/16/22 History prednisone 5 mg tablet 5 mg PO QNOON 03/14/22 08/17/24 Unknown History propranolol 60 mg capsule,24 60 mg PO HS 03/14/22 08/17/24 Unknown History hr,extended release trazodone 50 mg tablet 50 mg PO PRN PRN Pain 03/14/22 08/17/24 Unknown History leflunomide 20 mg tablet mg 08/17/24 Unknown History losartan 50 mg tablet mg 08/17/24 Unknown History tadalafil 10 mg tablet mg 08/17/24 Unknown History Allergies Allergy/AdvReac Type Severity Reaction Status Date / Time benzoin Allergy Mild blisters Verified 08/17/24 09:28 gum mastic Allergy Mild blisters Verified 08/17/24 09:28 adhesive tape AdvReac Mild blisters Verified 08/17/24 09:28 Review of Systems Review of Systems: CONSTITUTIONAL: Denies fever, chills, or sweats. EYES: Denies visual changes, redness, or discharge. ENT: Denies rhinorrhea, congestion, sore throat, or otalgia. Positive right-sided cheek pain and swelling x2 days CARDIOVASCULAR: Denies chest pain, palpitations, or edema. RESPIRATORY: Denies cough or dyspnea. GASTROINTESTINAL: Denies abdominal pain, nausea, vomiting, or diarrhea. GENITOURINARY: Denies dysuria or hematuria. SKIN: Denies rash or itching. MUSCULOSKELETAL: Denies back pain, joint pain, or myalgia. NEUROLOGIC: Denies headache, numbness, or weakness. PSYCHIATRIC: Denies anxiety or depression. [facility] Past Medical History Medical History Malunion of joint fusion Hallux valgus (acquired), right foot Achilles tendon contracture, left Degenerative arthritis of right knee Encounter for Postoperative Care CHF (congestive heart failure) diastolic Chronic narcotic use Obesity Achilles tendon contracture, right Idiopathic neuropathy Arthritis of foot, degenerative Pes planovalgus Arthritis Sleep disorder History of pulmonary embolism Constipation Hypertension Abnormality of heart beat Afib Sleep apnea Vision changes Dizziness Weight gain Surgical History Surgical History History of foot surgery bilateral heal spur removal Social History Social History Smoking packs per day: 1.5 Smoking cigarettes per day: 30.0 Years smoked: 10 Smoking pack-years: 15.00 Smoking status: Former smoker Tobacco type: cigarettes Smoking end date: 05/29/84 Additional smoking assessment comments: STATES 1-2PK/DAY/10YRS - QUIT AGE 26? Alcohol intake: former Substance use: never Living arrangements: with family Gender identity (if verbalized by the patient): Male Sexual Orientation (if Verbalized by the Patient): Straight or Heterosexual Spiritual care concerns: No Comments At the time of my signature I agree with nursing past medical history, surgical, social, and family history. There is no relevant family history pertinent to the presenting complaint. Exam Narrative: GENERAL: Well-appearing, well-nourished, and in no acute distress. HEAD: Normocephalic, atraumatic. EYES: PERRLA and EOMI. ENT: Nares clear, no rhinorrhea or epistaxis. Mucous membranes moist. posterior pharynx with no erythema, tonsillar enlargement, exudates or lesions present. There is a pimple like area noted to the inside of the pupil membrane of the right cheek. There is a hardened area palpated around it. The area was slightly sways and we did return some white pus and drained it. There is no other abscesses to the cheek that was palpated. The area was cleaned with saline. NECK: Supple. No lymphadenopathy CHEST: Clear to auscultation. No respiratory distress. HEART: Regular rate and rhythm. No murmur heard. Normal peripheral pulses. ABDOMEN: Soft, nontender, nondistended, normal active bowel sounds. EXTREMITIES: Normal range of motion. No edema. SKIN: Warm, dry, no rash. NEURO: No focal deficits. Alert and oriented x3. Course Course Level of Care: Express Care Visit Vital Signs Vital signs: Vital Signs Temperature 36.8 C 08/17/24 09:30 Pulse Rate 87 08/17/24 09:30 Respiratory Rate 16 08/17/24 09:30 Blood Pressure 152/82 H 08/17/24 09:30 Pulse Oximetry 98 08/17/24 09:30 Temperature 36.8 C 08/17/24 09:30 Pulse Rate 87 08/17/24 09:30 Respiratory Rate 16 08/17/24 09:30 Blood Pressure 152/82 H 08/17/24 09:30 Pulse Oximetry 98 08/17/24 09:30 Vital signs reviewed. The patient has been informed that they may have pre-hypertension or Hypertension based on a BP reading in the department. I recommend that the patient call the primary care provider listed on their discharge instructions or a physician of their choice this week to arrange follow up for further evaluation of possible pre-hypertension or Hypertension Medical Decision Making MDM Narrative Medical decision making narrative: Discussed with patient that we will discharge him home with some oral antibiotics however because he is on methotrexate and could be immune compromise he will need to follow up with his doctor this week in a couple of days to ensure that the swelling is not getting worse. Encouraged a warm compress to the cheek to help with pain and promote continuous drainage. Discussed with patient that if his symptoms at all get worse he needs to go to the ER for further evaluation and treatment as soon as possible. Patient is aware the plan care denies any other questions or concerns at this time. For antibiotic usage UpToDate was reference and per up-to-date guidelines only 450 mg of clindamycin 3 times a day even for immune compromise patient's was noted at this time. Patient does not show any signs of sepsis including no fevers, body aches, chills there is no pain noted to the jaw area patient able to open and close mouth without issues and therefore I think we can continue to use oral medications for treatment however again discussed with patient that if anything changes or worsens he needs to go the ER right away for evaluation possible IV antibiotics. Differential Diagnosis Differential Diagnosis: Differential diagnosis: Dental caries, periodontal disease, avulsed tooth, tooth infections, mandibular infection, Daniel's angiana, upper tooth infection, dry socket, gingivitis, acute necrotizing ulcerative gingivitis, sialolithiasis. Vital Signs Vital Signs: Vital Signs Temperature 36.8 C 08/17/24 09:30 Pulse Rate 87 08/17/24 09:30 Respiratory Rate 16 08/17/24 09:30 Blood Pressure 152/82 H 08/17/24 09:30 Pulse Oximetry 98 08/17/24 09:30 Temperature 36.8 C 08/17/24 09:30 Pulse Rate 87 08/17/24 09:30 Respiratory Rate 16 08/17/24 09:30 Blood Pressure 152/82 H 08/17/24 09:30 Pulse Oximetry 98 08/17/24 09:30 Critical Care Time Critical Care Time Critical Care Time: No Discharge Plan Discharge Clinical Impression: Abscess of buccal space of mouth Patient Disposition: Home, Self-Care Condition: Stable Instructions: Antibiotic Form, Abscess (ED) Additional Instructions: Warm compresses to the area 20-30 minutes 4-6 times a day and as needed Use hydrogen peroxide with Q-tip to clean the area at least 2 to 3 times a day. antibiotic as directed--finish the medicine tylenol/ibuprofen for pain watch for increasing infection--redness, swelling, drainage follow up with PCP/ dentist in 2-4 days for a wound check recheck if develop fever, chills, increasing symptoms Patient Language: Mauritanian Prescriptions: New clindamycin HCl 150 mg capsule 150 mg PO TID 7 Days Qty: 21 0RF clindamycin HCl 300 mg capsule 300 mg PO TID 7 Days Qty: 21 0RF No Action losartan 50 mg tablet leflunomide 20 mg tablet tadalafil 10 mg tablet gabapentin 300 mg capsule 600 mg PO BID Patient Comments: 300MG BID amlodipine 10 mg tablet 10 mg PO DAILY Eliquis 5 mg tablet 5 mg PO BID fluocinonide 0.05 % cream 1 applic topical PRN PRN (Reason: Itching) methotrexate sodium 2.5 mg tablet 15 mg PO WEEKLY Patient Comments: TAKES ON THURSDAYS propranolol 60 mg capsule,extended release 24 hr 60 mg PO HS folic acid 1 mg Tablet 1 mg PO DAILY prednisone 5 mg tablet 5 mg PO QNOON trazodone 50 mg tablet 50 mg PO PRN PRN (Reason: Pain) cyclobenzaprine 10 mg Tablet 10 mg PO TID PRN (Reason: Muscle Pain) ondansetron 8 mg tablet,disintegrating 8 mg PO Q8H PRN (Reason: nausea and vomiting) Qty: 10 1RF ondansetron 8 mg tablet,disintegrating 8 mg PO Q8H PRN (Reason: nausea and vomiting) Qty: 10 1RF multivitamin,[id number]-[id number] Tablet 1 tablet PO DAILY Follow-up/Referrals: Jostin,Fidel Cao MD [Primary Care Provider] - Time of Disposition: 09:45
[2024-08-17 09:30] VITALS: BP 152/82; PULSE 87; RESP 16; TEMP 36.8; O2SAT 98
== END 2024-08-17 10:00 | disposition home or self-care (01) ==
PROVIDERS: Emergency Provider Nurse Practitioner Family; PCP Internal Medicine
DX: K12.2 Cellulitis and abscess of mouth (principal); I11.0 Hypertensive heart disease with heart failure; I50.9 Heart failure, unspecified; Z87.891 Personal history of nicotine dependence; Z79.899 Other long term (current) drug therapy; Z79.01 Long term (current) use of anticoagulants
CPT/HCPCS: 99213; G0463